=== PATIENT | female | born 1975 | race Caucasian/White ===

== ENCOUNTER 2022-08-27 07:53 | Emergency (ER) | payer OTHER, SELFPAY ==
[2022-08-27 07:58] VITALS: BP 139/95; PULSE 80; RESP 24; O2SAT 98; O2SAT 99; BMI 38.6
[2022-08-27 07:59] VITALS: BP 139/95; PULSE 77; PULSE 88; RESP 17; O2SAT 92; O2SAT 97
--- NOTE | 2022-08-27 08:13 | ECG_ITS ---
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
--- NOTE | 2022-08-27 08:13 | XR_ITS ---
[address] [address] Patient Name: ADRIEN ALVES MRN: [id number] date: 1975 Sex: F Assigned Patient Location: ER Current Patient Location: ED.MAIN Accession/Order Number: [id number] Exam Date: 08/27/2022 08:27 Report Date: 08/27/2022 08:39 At the request of: SHANEL RUIZ Procedure: XR chest 1V EXAMINATION: XR chest 1V HISTORY: chest pain 24 hours COMPARISON: No relevant comparison available. TECHNIQUE: AP portable FINDINGS: LUNGS: No significant pulmonary parenchymal abnormalities. VASCULATURE: No increased pulmonary vasculature. PLEURA: No pneumothorax, effusion, or pleural thickening. CARDIAC: No cardiomegaly or cardiac silhouette abnormality. MEDIASTINUM: No visible mass or adenopathy. BONES: No fracture or visible bone lesion. OTHER: Negative. IMPRESSION: No acute cardiopulmonary process Electronically authenticated by: CATHERINE GAYLE Date: 08/27/2022 08:39
--- NOTE | 2022-08-27 08:15 | ED_ITS ---
Documented by User: Yumiko Gutierrez 08/27/22 08:15 HPI - Chest Pain General Chief Complaint: Chest Pain Stated Complaint: CHEST PAIN Time Seen by Provider: 08/27/22 07:56 Source: patient Mode of arrival: walk-in Related Data Home Medications Medication Instructions Recorded Confirmed venlafaxine 37.5 mg 37.5 mg PO QDAY 08/27/22 08/27/22 capsule,extended release 24 hr Allergies Allergy/AdvReac Type Severity Reaction Status Date / Time [place] [facility] [place] Allergy Verified 08/27/22 07:58 PFSH PFSH Social History Smoking status: Former smoker Exam Constitutional Vital Signs - 24 hr 08/27/22 07:58 08/27/22 08:16 08/27/22 07:58 Pulse Rate Pulse Rate [Monitor] 80 Respiratory Rate 24 Blood Pressure Blood Pressure [Right Arm] 139/95 H Pulse Oximetry 99 98 Oxygen Delivery Method Room Air Room Air 08/27/22 07:59 08/27/22 07:59 08/27/22 08:29 Pulse Rate 77 88 92 H Pulse Rate [Monitor] Respiratory Rate 17 17 16 Blood Pressure 139/95 H 139/95 H 113/92 H Blood Pressure [Right Arm] Pulse Oximetry 97 92 L 95 Oxygen Delivery Method 08/27/22 08:30 08/27/22 08:30 08/27/22 09:01 Pulse Rate 80 74 73 Pulse Rate [Monitor] Respiratory Rate 17 13 16 Blood Pressure 128/78 H 128/78 H 119/96 H Blood Pressure [Right Arm] Pulse Oximetry 95 97 98 Oxygen Delivery Method Course Vital Signs Vital signs: Vital Signs Pulse Rate 80 08/27/22 07:58 Respiratory Rate 24 08/27/22 07:58 Blood Pressure 139/95 H 08/27/22 07:58 Pulse Oximetry 99 08/27/22 07:58 Oxygen Delivery Method Room Air 08/27/22 07:58 Pulse Rate 73 08/27/22 09:01 Respiratory Rate 16 08/27/22 09:01 Blood Pressure 119/96 H 08/27/22 09:01 Pulse Oximetry 98 08/27/22 09:01 Oxygen Delivery Method Room Air 08/27/22 08:16 MDM - Chest Pain Lab Data Labs: Lab Results 08/27/22 Range/Units 08:05 WBC 5.5 (4.0-11.0) 10^3/uL RBC 4.23 (4.20-5.40) 10^6/uL Hgb 12.3 (12.0-16.0) g/dL Hct 37.0 (36.0-48.0) % MCV 87.5 (81.0-99.0) fL MCH 29.1 (26.7-34.0) pg MCHC 33.2 (29.9-35.2) g/dL RDW 12.0 (11.0-15.0) % Plt Count 281 (150-450) 10^3/uL MPV 8.8 L (9.5-13.5) fL Neut % (Auto) 46.9 (43.0-75.0) % Lymph % (Auto) 43.6 (20.5-60.0) % [place] % (Auto) 7.3 (1.7-12.0) % Eos % (Auto) 1.3 (0.9-7.0) % Baso % (Auto) 0.5 (0.2-2.0) % Neut # (Auto) 2.6 (1.4-6.5) 10^3/uL Lymph # (Auto) 2.4 (1.2-3.8) 10^3/uL [place] # (Auto) 0.4 (0.3-0.8) 10^3/uL Eos # (Auto) 0.1 (0.0-0.7) 10^3/uL Baso # (Auto) 0.0 (0.0-0.1) 10^3/uL Abs Immat Gran (auto) 0.02 (0.00-0.03) 10^3/uL Imm/Tot Granulo (auto) 0.4 (0.0-0.5) % D-Dimer <0.19 (<=0.59) mg/L FEU Sodium 139 (136-145) mmol/L Potassium 3.9 (3.5-5.1) mmol/L Chloride 102 (98-107) mmol/L Carbon Dioxide 26.8 (21.0-32.0) mmol/L Anion Gap 14.1 BUN 16.0 (7.0-18.0) mg/dL Creatinine 0.94 (0.55-1.02) mg/dL Est GFR ( Amer) >60 (>=60) Est GFR (Non-Af Amer) >60 (>=60) BUN/Creatinine Ratio 17.0 Glucose 94 (74-106) mg/dL Calcium 8.9 (8.5-10.1) mg/dL Troponin I High Sens 16.1 (4.0-51.3) pg/mL Discharge Plan Discharge Chief Complaint: Chest Pain Clinical Impression: Atypical chest pain Patient Disposition: Home, Self-Care Time of Disposition Decision: 09:31 Condition: Good Mode of Transportation: Private Vehicle Prescriptions / Home Meds: No Action venlafaxine 37.5 mg capsule,extended release 24hr 37.5 mg PO QDAY Instructions: Chest Pain (ED) Stand Alone Forms: Portal Instructions Referrals: Akanksha Jack MD [Primary Care Provider] - 1 week Documented by User: Roney Perez MD 08/27/22 09:34 HPI - Chest Pain General Chief Complaint: Chest Pain Stated Complaint: CHEST PAIN Time Seen by Provider: 08/27/22 07:56 History of Present Illness HPI narrative: 46-year-old female presents for chest pain. It's been in the left upper heart of her chest for twenty-four hours continuously. No injury. No fever or cough. Sitting up makes it worse. She is not complaining of palpitations or shortness of breath or back pain. It goes down to the area below her left breast but doesn't radiate into her neck or arm. Related Data Home Medications Medication Instructions Recorded Confirmed venlafaxine 37.5 mg 37.5 mg PO QDAY 08/27/22 08/27/22 capsule,extended release 24 hr Allergies Allergy/AdvReac Type Severity Reaction Status Date / Time cefaclor [From [facility]] Allergy Verified 08/27/22 07:58 Review of Systems 2 ROS Narrative A ten point review of systems is negative except as noted above. PFSH PFSH Social History Smoking status: Former smoker Exam Narrative Exam Narrative: Nurses note and vital signs reviewed and patient is not hypoxic. General: The patient appears well and in no apparent distress. Patient is resting comfortably on cart. Skin: Warm, dry, no pallor noted. There is no rash noted. Head: Normocephalic, atraumatic Eye: Normal conjunctiva, no drainage Ears, Nose, Mouth, and Throat: oral mucosa is moist. Nares patent. Cardiovascular: Regular Rate and Rhythm. Chest wall not tender. Respiratory: Patient is in no distress, no accessory muscle use, lungs are clear to auscultation, no wheezing, rales or rhonchi Back: non-tender GI: Normal bowel sounds, no tenderness to palpation, no masses appreciated. No rebound, guarding, or rigidity noted. Musculoskeletal: The patient has no evidence of calf tenderness, no pitting edema, symmetrical pulses noted bilaterally Neurological: A&O, normal speech Psychiatric: Cooperative Constitutional Vital Signs - 24 hr 08/27/22 07:58 08/27/22 08:16 08/27/22 07:58 Pulse Rate Pulse Rate [Monitor] 80 Respiratory Rate 24 Blood Pressure Blood Pressure [Right Arm] 139/95 H Pulse Oximetry 99 98 Oxygen Delivery Method Room Air Room Air 08/27/22 07:59 08/27/22 07:59 08/27/22 08:29 Pulse Rate 77 88 92 H Pulse Rate [Monitor] Respiratory Rate 17 17 16 Blood Pressure 139/95 H 139/95 H 113/92 H Blood Pressure [Right Arm] Pulse Oximetry 97 92 L 95 Oxygen Delivery Method 08/27/22 08:30 08/27/22 08:30 08/27/22 09:01 Pulse Rate 80 74 73 Pulse Rate [Monitor] Respiratory Rate 17 13 16 Blood Pressure 128/78 H 128/78 H 119/96 H Blood Pressure [Right Arm] Pulse Oximetry 95 97 98 Oxygen Delivery Method Course Vital Signs Vital signs: Vital Signs Pulse Rate 80 08/27/22 07:58 Respiratory Rate 24 08/27/22 07:58 Blood Pressure 139/95 H 08/27/22 07:58 Pulse Oximetry 99 08/27/22 07:58 Oxygen Delivery Method Room Air 08/27/22 07:58 Pulse Rate 73 08/27/22 09:01 Respiratory Rate 16 08/27/22 09:01 Blood Pressure 119/96 H 08/27/22 09:01 Pulse Oximetry 98 08/27/22 09:01 Oxygen Delivery Method Room Air 08/27/22 08:16 MDM - Chest Pain MDM Narrative Medical decision making narrative: Her workup here is negative. No evidence of heart disease or pneumothorax or pulmonary embolism. She'll follow-up with her doctor if symptoms persist. Treatment diagnosis and follow-up were discussed with the patient. Differential Diagnosis Differential diagnosis: Likely pneumothorax, stable angina, unstable angina pectoris, atypical chest pain, st elevation myocardial infarction, costochondritis and chest pain Lab Data Attestation: I reviewed the patient's lab results. Labs: Lab Results 08/27/22 Range/Units 08:05 WBC 5.5 (4.0-11.0) 10^3/uL RBC 4.23 (4.20-5.40) 10^6/uL Hgb 12.3 (12.0-16.0) g/dL Hct 37.0 (36.0-48.0) % MCV 87.5 (81.0-99.0) fL MCH 29.1 (26.7-34.0) pg MCHC 33.2 (29.9-35.2) g/dL RDW 12.0 (11.0-15.0) % Plt Count 281 (150-450) 10^3/uL MPV 8.8 L (9.5-13.5) fL Neut % (Auto) 46.9 (43.0-75.0) % Lymph % (Auto) 43.6 (20.5-60.0) % [place] % (Auto) 7.3 (1.7-12.0) % Eos % (Auto) 1.3 (0.9-7.0) % Baso % (Auto) 0.5 (0.2-2.0) % Neut # (Auto) 2.6 (1.4-6.5) 10^3/uL Lymph # (Auto) 2.4 (1.2-3.8) 10^3/uL [place] # (Auto) 0.4 (0.3-0.8) 10^3/uL Eos # (Auto) 0.1 (0.0-0.7) 10^3/uL Baso # (Auto) 0.0 (0.0-0.1) 10^3/uL Abs Immat Gran (auto) 0.02 (0.00-0.03) 10^3/uL Imm/Tot Granulo (auto) 0.4 (0.0-0.5) % D-Dimer <0.19 (<=0.59) mg/L FEU Sodium 139 (136-145) mmol/L Potassium 3.9 (3.5-5.1) mmol/L Chloride 102 (98-107) mmol/L Carbon Dioxide 26.8 (21.0-32.0) mmol/L Anion Gap 14.1 BUN 16.0 (7.0-18.0) mg/dL Creatinine 0.94 (0.55-1.02) mg/dL Est GFR ( Amer) >60 (>=60) Est GFR (Non-Af Amer) >60 (>=60) BUN/Creatinine Ratio 17.0 Glucose 94 (74-106) mg/dL Calcium 8.9 (8.5-10.1) mg/dL Troponin I High Sens 16.1 (4.0-51.3) pg/mL ECG Data Attestation: I personally reviewed and interpreted this ECG as follows: (EKG on my interpretation shows normal sinus rhythm with a rate of 83. No acute ST segment changes.) Heart Score History: Slightly/Non-Suspicious ECG: Normal Age: >45-<65 years Risk Factors: 1 or 2 Risk Factors Troponin: <Normal Limit Total Heart Score Recommendations & Risks:: 2 Discharge Plan Discharge Chief Complaint: Chest Pain Clinical Impression: Atypical chest pain Patient Disposition: Home, Self-Care Time of Disposition Decision: 09:31 Condition: Good Mode of Transportation: Private Vehicle Prescriptions / Home Meds: No Action venlafaxine 37.5 mg capsule,extended release 24hr 37.5 mg PO QDAY Instructions: Chest Pain (ED) Stand Alone Forms: Portal Instructions Referrals: Akanksha Jack MD [Primary Care Provider] - 1 week
--- NOTE | 2022-08-27 08:21 | PC.NURSE ---
Patient arrives c/o left sided chest pain that radiates to area under left breast. patient states that it began yesterday while she way laying in bed, cuddling a dog. Patient reports no medications taken other than her mental health medications and denies cardiac history but states, something like this happened years ago but they never found out why. Patient denies following up with physician after that episode. patient skin is pink, warm, dry. Patient is in no active distress and is lying in bed. patient oriented to room and given call light.
[2022-08-27 08:29] VITALS: BP 113/92; PULSE 92; RESP 16; O2SAT 95
[2022-08-27 08:30] VITALS: BP 128/78; PULSE 74; PULSE 80; RESP 13; RESP 17; O2SAT 95; O2SAT 97
[2022-08-27] MEDS: ASPIRIN 81 MG TAB.CHEW 324 MG PO (08:33)
[2022-08-27 08:42] LABS: Basophils Percent Auto 0.5 % (0.2-2.0); Eosinophils Absolute Auto 0.1 10^3/uL (0.0-0.7); Eosinophils Percent Auto 1.3 % (0.9-7.0); Hemoglobin 12.3 g/dL (12.0-16.0); Immature Granulocytes Abs Auto 0.02 10^3/uL (0.00-0.03); Immature Granulocytes Pct Auto 0.4 % (0.0-0.5); Lymphocytes Absolute Auto 2.4 10^3/uL (1.2-3.8); Lymphocytes Percent Auto 43.6 % (20.5-60.0); Mean Corpuscular HGB Conc 33.2 g/dL (29.9-35.2); Mean Corpuscular Hemoglobin 29.1 pg (26.7-34.0); Mean Corpuscular Volume 87.5 fL (81.0-99.0); Mean Platelet Volume 8.8 fL (9.5-13.5); Monocytes Absolute Auto 0.4 10^3/uL (0.3-0.8); Monocytes Percent Auto 7.3 % (1.7-12.0); Neutrophils Absolute Auto 2.6 10^3/uL (1.4-6.5); Neutrophils Percent Auto 46.9 % (43.0-75.0); Platelet Count 281 10^3/uL (150-450); Red Blood Count 4.23 10^6/uL (4.20-5.40); White Blood Count 5.5 10^3/uL (4.0-11.0)
[2022-08-27 08:59] LABS: Anion Gap 14.1; Calcium 8.9 mg/dL (8.5-10.1); Carbon Dioxide 26.8 mmol/L (21.0-32.0); Chloride 102 mmol/L (98-107); Estimated GFR (African America >60 (>=60); Estimated GFR (Non-African Ame >60 (>=60); Glucose 94 mg/dL (74-106); Potassium 3.9 mmol/L (3.5-5.1); Sodium 139 mmol/L (136-145); Troponin I High Sensitivity 16.1 pg/mL (4.0-51.3)
[2022-08-27 09:01] VITALS: BP 119/96; PULSE 73; PULSE 80; RESP 16; RESP 22; O2SAT 96; O2SAT 98
[2022-08-27 09:05] LABS: D Dimer <0.19 mg/L FEU (<=0.59)
[2022-08-27 09:31] VITALS: BP 121/86
== END 2022-08-27 10:22 | disposition home or self-care (01) ==
PROVIDERS: Emergency Provider Emergency Medicine; PCP Family Medicine
DX: R07.89 Other chest pain (principal); Z87.891 Personal history of nicotine dependence
CPT/HCPCS: 36415; 71045; 80048; 84484; 85025; 85378; 93005; 99285

== ENCOUNTER 2022-12-23 20:34 | Emergency (ER) | payer OTHER, SELFPAY ==
[2022-12-23 20:39] VITALS: BP 143/93; PULSE 114; RESP 20; TEMP 36.7; O2SAT 98; BMI 38.1
--- NOTE | 2022-12-23 20:50 | ED.SKABFB1 ---
HPI - Skin/Abscess/Foreign Bdy General Chief complaint: Animal Bite Stated complaint: BEE STING UPPER L ARM Time Seen by Provider: 12/23/22 20:36 Source: patient Mode of arrival: walk-in Limitations: no limitations History of Present Illness HPI narrative: patient is a 47-year-old female presents to the emergency department for a bee sting to the left medial arm that occurred yesterday. She states today the area has been more swollen and red and is bothering her. She did not take any medications before she came in. She has no history of bee sting ALLERGY. She has not had any swelling, rash anywhere else on the body. No drainage from the area. She is not concerned for . Related Data Home Medications Medication Instructions Recorded Confirmed venlafaxine 37.5 mg 37.5 mg PO QDAY 08/27/22 12/23/22 capsule,extended release 24 hr albuterol sulfate 2.5 mg/3 mL 2.5 mg inhalation Q4H PRN 12/23/22 12/23/22 (0.083 %) solution for nebulization shortness of breath or wheezing albuterol sulfate 90 mcg/actuation 2 puff inhalation Q4H PRN 12/23/22 12/23/22 aerosol inhaler shortness of breath or wheezing Previous Rx's Medication Instructions Recorded hydroxyzine HCl 25 mg tablet 25 mg PO Q6H PRN itching #20 tabs 12/23/22 prednisone 20 mg tablet See Rx Instructions .Route 12/23/22 .COMPLEX #12 tabs Allergies Allergy/AdvReac Type Severity Reaction Status Date / Time cefaclor [From [facility]] Allergy Verified 12/23/22 20:43 Review of Systems ROS Constitutional Denies: fever or chills Ears, nose, mouth, and throat Denies: throat pain Respiratory Denies: shortness of breath or cough Gastrointestinal Denies: nausea or vomiting Musculoskeletal Denies: back pain Integumentary/Breast Denies: rash Hematologic/Lymphatic Denies: easy bruising PFSH PFSH Social History Smoking status: Former smoker Exam Narrative Exam Narrative: Gen.: Awake, alert, in no distress Head: Normocephalic, atraumatic ENT: Moist mucous membranes; no facial or lip swelling Respiratory: No respiratory distress, lungs clear bilaterally Cardio: Regular rate and rhythm Extremities: Moves extremities equally Psych: Normal mood and affect Neuro: No focal neuro deficit Skin: Warm, dry, intact; erythema of the left medial arm, no evidence of retained stinger. no circumferential swelling or redness of the left arm. No other rashes or hives noted. Constitutional Vital Signs, click to edit/add: Last Vital Signs Temp 98.1 F 12/23/22 20:39 Pulse 114 H 12/23/22 20:39 Resp 20 12/23/22 20:39 BP 143/93 H 12/23/22 20:39 Pulse Ox 98 12/23/22 20:39 Course Vital Signs Vital signs: Vital Signs Temperature 98.1 F 12/23/22 20:39 Pulse Rate 114 H 12/23/22 20:39 Respiratory Rate 20 12/23/22 20:39 Blood Pressure 143/93 H 12/23/22 20:39 Pulse Oximetry 98 12/23/22 20:39 Temperature 98.1 F 12/23/22 20:39 Pulse Rate 114 H 12/23/22 20:39 Respiratory Rate 20 12/23/22 20:39 Blood Pressure 143/93 H 12/23/22 20:39 Pulse Oximetry 98 12/23/22 20:39 MDM - Skin/Abscess/Foreign Bdy MDM Narrative Medical decision making narrative: patient treated for localized ALLERGIC reaction to the left arm from bee sting. She is given antihistamines and steroid taper. No evidence of diffuse ALLERGIC reaction or anaphylaxis in the Emergency Room. Follow-up with PCP and return to the Emergency Room if symptoms change or worsen Medical Records Attestation: I reviewed the patient's medical records. Discharge Plan Discharge Chief Complaint: Animal Bite Clinical Impression: Bee sting Patient Disposition: Home, Self-Care Time of Disposition Decision: 20:43 Condition: Good Prescriptions / Home Meds: New prednisone 20 mg tablet See Rx Instructions .ROUTE .COMPLEX Qty: 12 0RF Rx Instructions: 3 tabs daily for 2 days, then 2 tabs daily for 2 days, then 1 tab daily for 2 days hydroxyzine HCl 25 mg tablet 25 mg PO Q6H PRN (Reason: itching) Qty: 20 0RF No Action albuterol sulfate 2.5 mg /3 mL (0.083 %) solution for nebulization 2.5 mg inhalation Q4H PRN (Reason: shortness of breath or wheezing) albuterol sulfate 90 mcg/actuation HFA aerosol inhaler 2 puff INHALATION Q4H PRN (Reason: shortness of breath or wheezing) venlafaxine 37.5 mg capsule,extended release 24hr 37.5 mg PO QDAY Instructions: Insect Bite or Sting (ED) Stand Alone Forms: Portal Instructions Referrals: Akanksha Jack MD [Primary Care Provider] - 1 week Discharge Date/Time: 12/23/22 21:09
[2022-12-23] MEDS: PREDNISONE 20 MG TABLET 60 MG PO (20:54)
[2022-12-23] MEDS: HYDROXYZINE HCL 25 MG TABLET PO (20:54)
== END 2022-12-23 21:09 | disposition home or self-care (01) ==
PROVIDERS: Emergency Provider Emergency Medicine; PCP Family Medicine
DX: T63.441A Toxic effect of venom of bees, accidental (unintentional), initial encounter (principal); Z79.899 Other long term (current) drug therapy; Z87.891 Personal history of nicotine dependence
CPT/HCPCS: 99283

== ENCOUNTER 2024-02-15 20:18 | Emergency (ER) | payer OTHER, SELFPAY ==
[2024-02-15] VITALS (14 sets, daily range): BP systolic 125–147; BP diastolic 73–94; PULSE 78–113; TEMP 36.6; O2SAT 92–100; BMI 41.6
--- OUTSIDE RECORDS SUMMARY | 2024-02-15 20:22 | XMS_ITS | CCD ---
Author Organization [facility] Care Team Providers Care Customer Service Attendant Name Role Phone Rafita Donnelly Unavailable Unavailable NONE, XXXX Unavailable Unavailable VernRafita toure Unavailable Unavailable NONE, XXXX Unavailable Unavailable PHYSICIAN, DEFAULT Unavailable Unavailable PHYSICIAN, DEFAULT Unavailable Unavailable ML, DR AKANKSHA Lackey Admitting Unavailable JACK, DR AKANKSHA Lackey Attending Unavailable JACK, DR AKANKSHA Lackey Primary Care Unavailable JACK, DR AKANKSHA Lackey Primary Care Unavailable JOCELYNE, MARQUIS Admitting Unavailable MARQUIS CASANOVA Attending Unavailable MARQUIS CASANOVA Consulting Unavailable CARLOS ALBERTO CALLE Consulting Unavailable JACK, DR AKANKSHA Lackey Admitting Unavailable JACK, DR AKANKSHA Lackey Attending Unavailable JACK, DR AKANKSHA Lackey Primary Care Unavailable JACK, DR AKANKSHA Lackey Consulting Unavailable JACK, DR AKANKSHA Lackey Primary Care Unavailable PAY, DR REY Admitting Unavailable PAY, DR REY Attending Unavailable PAY, DR REY Consulting Unavailable WILFRID DOOLEY Consulting Unavailable WOMACK, SAUL Consulting Unavailable Ml, Akanksha Unavailable Allergies Allergy Classification Reported Allergen(s) Allergy Type Date of Onset Reaction(s) Facility (3 sources) Cefaclor Drug Allergy 01-27-20 13 Unknown [facility] (9 sources) Morphine Drug Allergy 06-14-19 Unknown, [facility] (4 sources) Morphine Sulfate (Concentrate) *ANALGESICS - OPIOI Propensity to adverse reactions Unknown Continuent Other (4 sources) Ceclor *CEPHALOSPORINS* Propensity to adverse reactions 02-21-20 18 Unknown Continuent Other (3 sources) Cephalosporins (Antibiotic) Allergy to substance 06-29-19 [facility] Medications Current Medications Medication Drug Class(es) Dates Sig (Normalized) Sig (Original) amoxicillin 875 mg / clavulanate 125 mg oral tablet (1 source) Penicillin-class Antibacterial Start: 10-19-2022 take 1 tablet by mouth every twelve hours Amoxicillin-Pot Clavulanate 875-125 MG 1 tablet Orally every 12 hrs for 10 day(s) Oct, Active ibuprofen 100 mg oral tablet (3 sources) Nonsteroidal Anti-inflammatory Drug Motrin 100 mg 2 tablets as needed Orally as needed Active venlafaxine (13 sources) Serotonin and Norepinephrine Reuptake Inhibitor Start: 12-12-2023 take 1 capsule by mouth once daily Venlafaxine Active 0 .ROUTE .COMPLEX December 12, 2023 9:01am TAKE 1 CAPSULE BY MOUTH EVERY DAY Start: 11-18-2023 End: 12-12-2023 take 1 capsule by mouth once daily Venlafaxine Discontinued 0 .ROUTE .COMPLEX November 18, 2023 8:19am December 12, 2023 9:01am TAKE 1 CAPSULE BY MOUTH EVERY DAY Start: 10-17-2023 End: 11-18-2023 take 1 capsule by mouth once daily Venlafaxine Discontinued 0 .ROUTE .COMPLEX October 17, 2023 11:46am November 18, 2023 8:19am TAKE 1 CAPSULE BY MOUTH EVERY DAY Start: 10-17-[address] [facility] once daily Venlafaxine Active 0 .ROUTE .COMPLEX October 17, 2023 11:46am TAKE 1 CAPSULE BY MOUTH EVERY DAY Start: 04-27-2023 End: 10-17-2023 take 1 capsule by mouth once daily Venlafaxine Discontinued 1 CAP PO Daily April 27, 2023 1:00am October 17, 2023 11:46am FreeTextSig: TAKE ONE CAPSULE BY MOUTH DAILY; Note: Source Status: Refill; Refills: 5; Qty: 30 Each; Provider: Ml Lackey take [address] [facility] once daily Venlafaxine HCl ER 37.5 mg TAKE ONE CAPSULE BY MOUTH DAILY for 30 Active Completed/Discontinued Medications Medication Drug Class(es) Dates Sig (Normalized) Sig (Original) [id number] 200 actuat albuterol 0.09 mg/actuat metered dose inhaler (3 sources) beta2-Adrenergic Agonist Start: 06-29-2023 End: 01-02-2024 Albuterol Sulfate Discontinued 1 INH INHALATION Every 6 hours June 29, 2023 12:00am January 02, 2024 11:13am azithromycin 250 mg oral tablet (6 sources) Macrolide Antimicrobial Start: 04-27-2023 End: 06-29-2023 take 2 tablets by mouth once daily, then take 1 tablet by mouth once daily Azithromycin Discontinued TAB PO Daily April 27, 2023 1:00am June 29, 2023 11:42am FreeTextSig: as directed Orally 2 tabs po today, then 1 tab daily x 4 more days; Note: Source Status: Taking; Refills: 0; Provider: Ml Lackey Start: 12-17-2022 Azithromycin 2 50 MG as directed Orally 2 tabs po today, then 1 tab daily x 4 more days for 5 Dec, Active hydrocortisone 10 mg/ml / neomycin 3.5 mg/ml / polymyxin b [id number] unt/ml otic suspension (2 sources) Aminoglycoside Antibacterial, Polymyxin-class Antibacterial, Corticosteroid Start: 10-24-2023 End: 01-02-2024 Rcrbevcb-Smvcwzjqx-Es Discontinued 4 DROPS OTIC Three times daily October 24, 2023 12:00am January 02, 2024 11:13am Methylprednisolone (6 sources) Corticosteroid Start: 04-27-2023 End: 06-29-2023 Methylprednisolone Discontinued MG PO As Directed April 27, 2023 1:00am June 29, 2023 11:42am FreeTextSig: as directed Orally; Note: Source Status: Taking; Refills: 0; Qty: 1 Packet; Provider: Ml Lackey Start: 12-17-2022 methylPREDNISo lone 4 MG as directed Orally for 6 days Dec, Active permethrin 50 mg/ml topical cream (3 sources) Pyrethroid Start: 06-29-2023 End: 01-02-2024 Permethrin Discontinued 1 APPLIC TOPICAL Q14D 60 June 29, 2023 12:00am January 02, 2024 11:13am apply second treatment 14 days after first treatment if live lice remain tiZANidine 4 mg oral tablet (5 sources) Central alpha-2 Adrenergic Agonist Start: 04-27-2023 End: 06-29-2023 take 1 tablet by mouth once daily at bedtime as needed Tizanidine Discontinued MG PO April 27, 2023 1:00am June 29, 2023 11:42am FreeTextSi tablet as needed Orally qhs prn; Note: Source Status: Start; Provider: Ml Lackey take 1 tablet by nasir th once daily at bedtime as needed tiZANidine HCl 4 MG 1 tablet as needed Orally qhs prn for 10 days Active Problems Active Problems Problem Classification Problem Date Documented Date Episodic/Chronic Abdominal pain (10 sources) Right upper quadrant pain; Translations: [Right upper quadrant pain] Episodic Acute bronchitis (8 sources) Acute bronchitis; Translations: [Acute bronchitis due to other specified organisms] Episodic Anxiety disorders (12 sources) Generalized anxiety disorder; Translations: [Generalized anxiety disorder] 10-25-2023 Chronic Asthma (8 sources) Uncomplicated asthma; Translations: [Unspecified asthma, uncomplicated] Chronic Chronic obstructive pulmonary disease and bronchiectasis (1 source) Bronchitis, not specified as acute or chronic Episodic Deficiency and other anemia (10 sources) Anemia; Translations: [Anemia, unspecified] Episodic Genitourinary symptoms and ill-defined conditions (12 sources) Abnormal findings on microbiological examination of urine; Translations: [Unspecified abnormal findings in urine] Episodic Headache; including migraine (11 sources) Migraine without aura, not refractory ; Translations: [Migraine, unspecified, not intractable, without status migrainosus] Onset: 10-10-2017 Chronic Malaise and fatigue (17 sources) Fatigue; Translations: [Other fatigue] Episodic Mood disorders (10 sources) Depression; Translations: [Depression] Chronic Nausea and vomiting (8 sources) Nausea and vomiting; Translations: [Nausea with vomiting, unspecified] Onset: 09-05-2017 Episodic Nonspecific chest pain (1 source) Chest pain, unspecified Episodic Other circulatory disease (4 sources) Elevated blood-pressure reading without diagnosis of hypertension; Translations: [Elevated blood-pressure reading, without diagnosis of hypertension] Episodic Other connective tissue disease (1 source) Other muscle spasm Episodic Other ear and sense organ disorders (1 source) Otitis externa; Translations: [Unspecified otitis externa, unspecified ear] 10-25-2023 Chronic Other ear and sense organ disorders (1 source) Unspecified otitis externa, unspecified ear; Translations: [Infective otitis externa, unspecified] 10-24-2023 Chronic Other infections; including parasitic (2 sources) Pediculosis capitis; Translations: [Pediculosis due to Pediculus humanus capitis] 04-24-2024 Episodic Other nutritional; endocrine; and metabolic disorders (12 sources) Obese class II; Translations: [Body mass index (BMI) 38.0-38.9, adult] Chronic Other screening for suspected conditions (not mental disorders or infectious disease) (4 sources) Abnormal findings on diagnostic imaging of breast; Translations: [Other abnormal and inconclusive findings on diagnostic imaging of breast] Episodic Other upper respiratory disease (4 sources) Disorder of pharynx; Translations: [Other diseases of pharynx] Episodic Other upper respiratory infections (5 sources) Chronic sinusitis, unspecified; Translations: [Chronic sinusitis] Onset: 04-24-2021 Chronic Other upper respiratory infections (10 sources) Acute upper respiratory infection, unspecified; Translations: [Acute pharyngitis] Onset: 02-16-2022 Episodic Residual codes; unclassified (4 sources) Obstructive sleep apnea syndrome; Translations: [Obstructive sleep apnea (adult) (pediatric)] Chronic Residual codes; unclassified (6 sources) Family history of diabetes mellitus; Translations: [Family history of diabetes mellitus] Episodic Spondylosis; intervertebral disc disorders; other back problems (4 sources) Low back pain; Translations: [Low back pain, unspecified] Episodic Sprains and strains (4 sources) Sprain of calcaneofibular ligament; Translations: [Sprain of calcaneofibular ligament of unspecified ankle, initial encounter] Episodic Unclassified (3 sources) COUGH, UNSPECIFIED; Translations: [COUGH, UNSPECIFIED] Onset: 02-16-2022 Unclassified (4 sources) CONTACT W/AND (SUSP) EXPOS COVID-19; Translations: [CONTACT W/AND (SUSP) EXPOS COVID-19] Onset: 04-24-2021 Unclassified (3 sources) LOW BACK PAIN, UNSPECIFIED; Translations: [LOW BACK PAIN, UNSPECIFIED] Onset: 08-04-2021 Past or Other Problems Problem Classification Problem Date Documented Da te Episodic/Chronic Disorders of teeth and jaw (4 sources) Dental caries; Translations: [Dental caries, unspecified] Onset: 06-27-2018 Episodic Heart valve disorders (4 sources) O/E - cardiac murmur; Translations: [Cardiac murmur, unspecified] Onset: 06-13-2017 Episodic Other connective tissue disease (4 sources) Pain in left lower limb; Translations: [Pain in left leg] Onset: 04-28-2018 Episodic Residual codes; unclassified (1 source) Acquired absence of both cervix and uterus; Translations: [ACQUIRED ABSENCE BOTH CERVIX AND UTERUS] Onset: 07-21-2021 Episodic Unclassified (1 source) COUGH, UNSPECIFIED; Translations: [COUGH, UNSPECIFIED] Onset: 02-12-2022 Unclassified (1 source) LOW BACK PAIN, UNSPECIFIED; Translations: [LOW BACK PAIN, UNSPECIFIED] Onset: 07-31-2021 Unclassified (1 source) CONTACT W/AND (SUSP) EXPOS COVID-19; Translations: [CONTACT W/AND (SUSP) EXPOS COVID-19] Onset: 04-22-2021 Results Test Name Value Interpretation Reference Range Facility Covid-19 PCR (CVDTB)on SARS-CoV-2 (COVID-19) RNA ALBERTO+probe Ql (Unsp spec) Not detected Normal NOT DETECTED [facility] Comment on above: Result Comment: When diagnostic testing is negative, the possibility of a false negative should be considered in the context of a patient's recent exposures and the presence of clinical signs and symptoms consistent with SARS-CoV-2. This test is not yet approved or cleared by the [place] FDA. When there are no FDA-approved or cleared tests available, and other criteria are met, FDA can make tests available under an emergency access mechanism called an Emergency Use Authorization (EUA). The EUA for this test is supported by the [employer] of Health and Human Service's declaration that circumstances exist to justify the emergency use of in vitro diagnostics for the detection and/or diagnosis of the virus that causes COVID-19. This EUA will remain in effect for the duration of the COVID-19 declaration justifying emergency of IVDs, unless it is terminated or revoked by the FDA (after which the test may no longer be used). Performed By: #### C VDTBH ####[facility] [address] [place], [place] [address]MnBaudilio Jean GROUP A STREP CULTUREon S. pyogenes Ag Ql (Unsp spec) Culture Observations: NEGATIVE FOR GROUP A STREPTOCOCCUS. Normal [facility] Comment on above: Performed By: #### G RASTCX, SSCRN #### [facility] [address] [place] [address] Dr. Harini Jean INFLUENZA A AND B AGon 02-12 INFLUANEGH SEE BELOW Normal [facility] Comment on above: Result Comment: Nega tive for Flu A protein angiten. Infection due to Flu A cannot be ruled out. Flu A angiten in the sample may be below the detection limit of the test. Performed By: #### I NFLUAB #### [facility] [address] [place] [address] Dr. Harini Jean INFLUBNEG SEE BELOW Normal [facility] Comment on above: Result Comment: Nega tive for Flu B protein antigen. Infection due to Flu B cannot be ruled out. Flu B antigen in the sample may be below the detection limit of the test. Performed By: #### I NFLUAB #### [facility] [address] [place] [address] Dr. Harini Jean INFLUENZA A AG Negative Normal NEGATIVE SEE COMMENT [facility] Comment on above: Performed By: #### I NFLUAB #### [facility] [address] [place] [address] Dr. Harini Jean INFLUENZA B AG Negative Normal NEGATIVE SEE COMMENT [facility] Comment on above: Performed By: #### I NFLUAB #### [facility] [address] [place] [address] Dr. Harini Jean INTERNAL CONTROLS Within Normal Limits Normal Wi thin Normal Limits [facility] Comment on above: Performed By: #### I NFLUAB #### [facility] [address] [place] [address] Dr. Harini Jean STREPT SCREENon 02-12-2022 STREP SCREEN A Negative Normal NEGATIVE [facility] Comment on above: Performed By: #### G RASTCX, SSCRN #### [facility] [address] [place] [address] Dr. Harini Jean XR CHEST 2 Von 02-12-2022 XR CHEST 2 V XR CHEST 2 V 02/13/20 22 7:10 PM EST CLINICAL INDICATION: Chest pain and shortness of breath COMPARISON: 11/22/2018 TECHNIQUE: PA and lateral views of the chest. FINDINGS: There are no tubes or implants noted. The cardiomediastinal silhouette and pulmonary vasculature are within normal limits. No focal parenchymal opacities. No pneumothorax or pleural effusion. No displaced rib fractures. Osseous structures demonstrate degenerative changes. Soft tissues are grossly normal. IMPRESSION: No acute cardiopulmonary abnormality. Electronically authenticated by: SAUL WOMACK Date: 2022-02-12 20:23 Normal [facility] CBC AUTO DIFFon 07-18-2021 BASO # 0.0 103/ul Normal 0.0-0.1 [facility] Comment on above: Performed By: #### C BC #### [facility] [address] [address] [address] Harini Jean Basophils/100 WBC (Bld) 0.4 % Normal 0.2-2.0 [facility] Comment on above: Performed By: #### C BC #### [facility] [address] [place] [address] Dr. Harini Jean EO # 0.1 103/ul Normal 0.0-0.7 [facility] Comment on above: Performed By: #### C BC #### [facility] [address] [place] [address] Dr. Harini Jean Eosinophils/100 WBC (Bld) 1.2 % Normal 0.9-7.0 [facility] Comment on above: Performed By: #### C BC #### [facility] [address] [place] [address] Dr. Harini Jean Erythrocyte distribution width (RBC) [Ratio] 12.2 % Normal 11.0-15.0 [facility] Comment on above: Performed By: #### C BC #### [facility] [address] [place] [address] Dr. Harini Jean Hematocrit (Bld) [Volume fraction] 35.1 % Critically low 36.0-48.0 [facility] Comment on above: Performed By: #### C BC #### [facility] [address] [place] [address] Dr. Harini Jean Hemoglobin (Bld) [Mass/Vol] 11.4 g/dL Critically low 12.0-16.0 [facility] Comment on above: Performed By: #### C BC #### [facility] [address] [place] [address] Dr. Harini Jean IG # 0.02 10e3/ul Normal 0.00-0.03 [facility] Comment on above: Performed By: #### C BC #### [facility] [address] [place] [address] Dr. Harini Jean IG % 0.3 % Normal 0.0-0.5 [facility] Comment on above: Performed By: #### C BC #### [facility] [address] [place] [address] Dr. Harini Jean LYMPH # 2.8 103/ul Normal 1.2-3.8 [facility] Comment on above: Performed By: #### C BC #### [facility] [address] [place] [address] Dr. Harini Jean Lymphocytes/100 WBC (Bld) 37.5 % Normal 20.5-60.0 [facility] Comment on above: Performed By: #### C BC #### [facility] [address] [place] [address] Dr. Harini Jean MANUAL DIFF REQ NO Normal [facility] Comment on above: Performed By: #### C BC #### [facility] [address] [place] [address] Dr. Harini Jean MCH (RBC) [Entitic mass] 29.5 pg Normal 26.7-34.0 [facility] Comment on above: Performed By: #### C BC #### [facility] [address] [place] [address] Dr. Harini Jean MCHC (RBC) [Mass/Vol] 32.5 g/dL Normal 29.9-35.2 [facility] Comment on above: Performed By: #### C BC #### [facility] [address] [place] [address] Dr. Harini Jean MCV (RBC) [Entitic vol] 90.7 fL Normal 81.0-99.0 [facility] Comment on above: Performed By: #### C BC #### [facility] [address] [place] [address] Dr. Harini Jean MONO # 0.6 103/ul Normal 0.3-0.8 [facility] Comment on above: Performed By: #### C BC #### [facility] [address] [place] [address] Dr. Harini Jean Monocytes/100 WBC (Bld) 7.6 % Normal 1.7-12.0 [facility] Comment on above: Performed By: #### C BC #### [facility] [address] [place] [address] Dr. Harini Jean NEUT # 4.0 103/ul Normal 1.4-6.5 [facility] Comment on above: Performed By: #### C BC #### [facility] [address] [place] [address] Dr. Harini Jean Neutrophils/100 WBC (Bld) 53.0 % Normal 43.0-75.0 [facility] Comment on above: Performed By: #### C BC #### [facility] [address] [place] [address] Dr. Harini Jean Platelet mean volume (Bld) [Entitic vol] 8.4 fL Critically low 9.5-13.5 [facility] Comment on above: Performed By: #### C BC #### [facility] [address] [place] [address] Dr. Harini Jean PLT 260 103/ul Normal 150-450 [facility] Comment on above: Performed By: #### C BC #### [facility] [address] [place] [address] Dr. Harini Jean RBC 3.87 106/ul Critically low 4.20-5.40 [facility] Comment on above: Performed By: #### C BC #### [facility] [address] [place] [address] Dr. Harini Jean WBC 7.5 103/ul Normal 4.0-11.0 [facility] Comment on above: Performed By: #### C BC #### [facility] [address] [place] [address] Dr. Harini Jean CRPon 07-18-2021 CRP 0.8 mg/dL Normal <=1.0 [facility] Comment on above: Performed By: #### B MP, CRP #### [facility] [address] [place] [address] Dr. Harini Jean ER URINE PROFILEon 2 Bilirubin Ql (U) Negative Normal NEGATIVE [facility] Comment on above: Performed By: #### E RUR #### [facility] [address] [place] [address] Dr. Harini Jean Clarity (U) CLEAR Normal CLEAR [facility] Comment on above: Performed By: #### E RUR #### [facility] [address] [place] [address] Dr. Harini Jean Color (U) LT. YELLOW Normal YELLOW [facility] Comment on above: Performed By: #### E RUR #### [facility] [address] [place] [address] Dr. Harini WHALEN A micrscopic examination will be performed if indicated. Normal [facility] Comment on above: Performed By: #### E RUR #### [facility] [address] [place] [address] Dr. Harini Jean Glucose Ql (U) Negative Normal NEGATIVE [facility] Comment on above: Performed By: #### E RUR #### [facility] [address] [place] [address] Dr. Harini Jean Hemoglobin Ql (U) Negative Normal NEGATIVE [facility] Comment on above: Performed By: #### E RUR #### [facility] [address] [place] [address] Dr. Harini Jean Ketones Ql (U) Negative Normal NEGATIVE [facility] Comment on above: Performed By: #### E RUR #### [facility] [address] [place] [address] Dr. Harini Jean LEUKOCYTES Negative Normal NEGATIVE [facility] Comment on above: Performed By: #### E RUR #### [facility] [address] [place] [address] Dr. Harini Jean Nitrite Ql (U) Negative Normal NEGATIVE [facility] Comment on above: Performed By: #### E RUR #### [facility] [address] [place] [address] Dr. Harini Jean pH (U) 6.5 [pH] Normal 5-9 [facility] Comment on above: Performed By: #### E RUR #### [facility] [address] [place] [address] Dr. Harini Jean SPEC GRAVITY 1.015 Normal 1.005-<=1.025 [facility] Comment on above: Performed By: #### E RUR #### [facility] [address] [place] [address] Dr. Harini Jean UA PROTEIN Negative Normal NEGATIVE/ TRACE [facility] Comment on above: Performed By: #### E RUR #### [facility] [address] [place] [address] Dr. Harini Jean UR MICRO IND NOT INDICATED Normal [facility] Comment on above: Performed By: #### E RUR #### [facility] [address] [place] [address] Dr. Harini Jean Urobilinogen Qn (U) 1.0 {Mariella'U}/dL Normal 0.2 - 1.0 [facility] Comment on above: Performed By: #### E RUR #### [facility] [address] [place] [address] Dr. Harini Jean PROF CHEM 8 (BAS METB)on Anion gap [Moles/Vol] 9.4 mmol/L Normal [facility] Comment on above: Performed By: #### B MP, CRP #### [facility] [address] [place] [address] Dr. Harini Jean Calcium [Mass/Vol] 8.7 mg/dL Normal 8.5-10.1 [facility] Comment on above: Performed By: #### B MP, CRP #### [facility] [address] [place] [address] Dr. Harini Jean Chloride [Moles/Vol] 103 mmol/L Normal 98-107 [facility] Comment on above: Performed By: #### B MP, CRP #### [facility] [address] [address] [address] Harini Jean CO2 [Moles/Vol] 29.5 mmol/L Normal 21.0-32.0 [facility] Comment on above: Performed By: #### B MP, CRP #### [facility] [address] [address] [address] Harini Jean Creatinine [Mass/Vol] 0.97 mg/dL Normal 0.55-1.02 [facility] Comment on above: Performed By: #### B MP, CRP #### [facility] [address] [address] [address] Harini Jean EGFR-AF CITIZEN [place] >60 Normal >=60 [facility] Comment on above: Performed By: #### B MP, CRP #### [facility] [address] [address] [address] Harini Jean EGFR-NON AF CITIZEN OF [place] >60 Normal >=60 [facility] Comment on above: Performed By: #### B MP, CRP #### [facility] [address] [address] [address] Harini Jean Glucose [Mass/Vol] 93 mg/dL Normal 74-106 [facility] Comment on above: Performed By: #### B MP, CRP #### [facility] [address] [address] [address] Harini Jean Potassium [Moles/Vol] 3.9 mmol/L Normal 3.5-5.1 [facility] Comment on above: Performed By: #### B MP, CRP #### [facility] [address] [address] [address] Harini Jean Sodium [Moles/Vol] 138 mmol/L Normal 136-145 [facility] Comment on above: Performed By: #### B MP, CRP #### [facility] [address] [address] [address] Harini Jean Urea nitrogen [Mass/Vol] 16.0 mg/dL Normal 7.0-18.0 [facility] Comment on above: Performed By: #### B MP, CRP #### [facility] [address] [place], [place] [address] Dr. Harini Jean Urea nitrogen/Creatinin e [Mass ratio] 16.5 mg/mg Normal [facility] Comment on above: Performed By: #### B MP, CRP #### [facility] [address] [place], [place] [address] Dr. Harini Jean SED RATE WESTERGRENon 2021 SED RATE 24 mm/hr Critically high <=20 [facility] Comment on above: Performed By: #### S EDR ####[facility] [address] [place], [place] [address]SrDr. Harini Jean XR LSPINE 2_3 VIEWSon 2021 XR LSPINE 2_3 VIEWS EXAMINATION: XR LSPINE 2_3 VIEWS, , 07/18/2021 8:22 PM EDT INDICATION: Pain HISTORY: Ordering Provider Reason for Exam: Technologist Note: Additional: COMPARISON: None. TECHNIQUE: Lumbar spine x-ray: 3 view(s). FINDINGS: No acute fracture or traumatic malalignment. Normal lumbar lordosis. No listhesis. No abnormal curvature. Vertebral body heights are normal. Disc heights are maintained. Visualized soft tissues are unremarkable. IMPRESSION: No acute fracture or traumatic malalignment. Electronically authenticated by: CARLOS ALBERTO CALLE Date: 2021-07-18 21:34 Normal [facility] Covid-19 PCR (CVDTB)on 04-07 SARS-CoV-2 (COVID-19) RNA ALBERTO+probe Ql (Unsp spec) Not detected Normal NOT DETECTED [facility] Comment on above: Result Comment: This test is not yet approved or cleared by the [place] FDA. When there are no FDA-approved or cleared tests available, and other criteria are met, FDA can make tests available under an emergency access mechanism called an Emergency Use Authorization (EUA). The EUA for this test is supported by the [employer] of Health and Human Service's (HHS's) declaration that circumstances exist to justify the emergency use of in vitro diagnostics for the detection and/or diagnosis of the virus that causes COVID-19. This EUA will remain in effect (meaning this test can be used) for the duration of the COVID-19 declaration justifying emergency of IVDs, unless it is terminated or revoked by FDA (after which the test may no longer be used). When diagnostic testing is negative, the possibility of a false negative should be considered in the context of a patient's recent exposures and the presence of clinical signs and symptoms consistent with SARS-CoV-2. Performed By: #### C [facility] #### [facility] [address] [place] [address] Dr. Harini Jean [facility] 10-19-2017 [facility] Letter Treva Ramires:How to activate your [facility] [employer] Account 1. Visit the [employer] Signup page at [email or web address] 2. Identify yourself using your one-time use activation code: [email or web address] s: 11/18/2017 3:16 PMThis activation code was e-mailed to m 3. Follow the on-screen prompts to choose your own secure username andpasswordThe following information will be necessary to access your account for thefirst time:Information needed for sign-up:Your custom activation code used one-time only for the initial accountset-up.Your date of birthThe last 4 digits of your social security numberWhat to do next:Fill in the requested information on the Identify Yourself Form [email or web address] , click Next.Create your login and password, choose a [employer] ID and password that will beeasy for you to use, but impossible for anyone else to guess.Pick a security question that will assist you in the event you forget yourpassword the next time you log-on.If you have difficulty activating your account, please call our [employer] at [phone] or toll free at .We hope you enjoy using [employer]!Kindest Regards,[facility] [employer] Team Normal [facility] Vital Signs Date Time Vital Sign Value Performing Clinician Facility 01-02-2024 11:06-0400 Body height 162.56 cm [facility] 01-02-2024 11:06-0400 Body mass index (BMI) [Ratio] 38.1 kg/m2 [facility] 01-02-2024 11:06-0400 Body weight 100.75 kg [facility] 01-02-2024 11:06-0400 Diastolic blood pressure 76 mm[Hg] [facility] 01-02-2024 11:06-0400 Heart rate 88 /min [facility] 01-02-2024 11:06-0400 Systolic blood pressure 112 mm[Hg] [facility] 10-24-2023 08:36-0400 Body height 162.56 cm [facility] 10-24-2023 08:36-0400 Body mass index (BMI) [Ratio] 37.9 kg/m2 [facility] 10-24-2023 08:36-0400 Body weight 100.24 kg [facility] 10-24-2023 08:36-0400 Diastolic blood pressure 93 mm[Hg] [facility] 10-24-2023 08:36-0400 Heart rate 80 /min [facility] 10-24-2023 08:36-0400 Systolic blood pressure 133 mm[Hg] [facility] 06-29-2023 11:38-0400 Body height 162.56 cm [facility] 06-29-2023 11:38-0400 Body mass index (BMI) [Ratio] 37.5 kg/m2 [facility] 06-29-2023 11:38-0400 Body weight 99.39 kg [facility] 06-29-2023 11:38-0400 Diastolic blood pressure 83 mm[Hg] [facility] 06-29-2023 11:38-0400 Heart rate 83 /min [facility] 06-29-2023 11:38-0400 Systolic blood pressure 118 mm[Hg] [facility] 02-24-2023 10:30-0500 Body height 162.56 cm Akanksha Jack [facility] 02-24-2023 10:30-0500 Body mass index (BMI) [Ratio] 38.45 kg/m2 Akanksha Jack [facility] 02-24-2023 10:30-0500 Body temperature 97.2 [degF] Akanksha Jack [facility] 02-24-2023 10:30-0500 Body weight 101.61 kg Akanksha Jack [facility] 02-24-2023 10:30-0500 Diastolic blood pressure 83 mm[Hg] Akanksha Jack [facility] 02-24-2023 10:30-0500 Systolic blood pressure 123 mm[Hg] Akanksha Jack [facility] 12-17-2022 10:45-0400 Body height 162.56 cm Akanksha Jack [facility] 12-17-2022 10:45-0400 Body mass index (BMI) [Ratio] 38.1 kg/m2 Akanksha Jack [facility] 12-17-2022 10:45-0400 Body temperature 98.9 [degF] Akanksha Jack [facility] 12-17-2022 10:45-0400 Body weight 100.7 kg Akanksha Jack [facility] 12-17-2022 10:45-0400 Diastolic blood pressure 78 mm[Hg] Akanksha Jack [facility] 12-17-2022 10:45-0400 Respiratory rate 12 /min Akanksha Jack [facility] 12-17-2022 10:45-0400 SaO2% (BldA) [Mass fraction] 97 % Akanksha Jack [facility] 12-17-2022 10:45-0400 Systolic blood pressure 128 mm[Hg] Akanksha Jack [facility] 10-19-2022 12:00-0400 Body height 162.56 cm Akanksha Jack [facility] 10-19-2022 12:00-0400 Body mass index (BMI) [Ratio] 38.62 kg/m2 Akanksha Jack [facility] 10-19-2022 12:00-0400 Body temperature 97.5 [degF] Akanksha Jack [facility] 10-19-2022 12:00-0400 Body weight 102.06 kg Akanksha Jack [facility] 10-19-2022 12:00-0400 Diastolic blood pressure 85 mm[Hg] Akanksha Jack [facility] 10-19-2022 12:00-0400 Systolic blood pressure 134 mm[Hg] Akanksha Jack [facility] 09-01-2022 11:45-0400 Body height 162.56 cm Akanksha Jack [facility] 09-01-2022 11:45-0400 Body mass index (BMI) [Ratio] 38.45 kg/m2 Akanksha Jack [facility] 09-01-2022 11:45-0400 Body weight 101.61 kg Akanksha Jack [facility] 09-01-2022 11:45-0400 Diastolic blood pressure 90 mm[Hg] Akanksha Jack [facility] 09-01-2022 11:45-0400 Systolic blood pressure 133 mm[Hg] Akanksha Jack [facility] 08-25-2022 09:30-0400 Body height 162.56 cm Akanksha Jack [facility] 08-25-2022 09:30-0400 Body mass index (BMI) [Ratio] 38.62 kg/m2 Akanksha Jack [facility] 08-25-2022 09:30-0400 Body weight 102.06 kg Akanksha Jack [facility] 08-25-2022 09:30-0400 Diastolic blood pressure 82 mm[Hg] Akanksha Jack Other [facility] 08-25-2022 09:30-0400 Systolic blood pressure 128 mm[Hg] Akanksha Jack Other [facility] Encounters Encounter Date Encounter Type Care Provider Facility Start: 01-02-2024 End: 01-02-2024 ambulatory [facility] Work Phone: Start: 01-02-2024 End: 01-02-2024 Patient encounter procedure [facility] Work Phone: Start: 10-24-2023 End: 10-24-2023 ambulatory [facility] Work Phone: Start: 10-24-2023 End: 10-24-2023 Patient encounter procedure [facility] Work Phone: Start: 06-29-2023 End: 06-29-2023 ambulatory [facility] Work Phone: Start: 06-29-2023 End: 06-29-2023 Patient encounter procedure [facility] Work Phone: Start: 03-24-2023 End: 03-24-2023 ambulatory Akanksha Jack Other [facility] Start: 03-24-2023 Telephone encounter Akanksha Jack [facility] Start: 02-24-2023 End: 02-24-2023 ambulatory Akanksha Jack Other [facility] Start: 02-24-2023 Office outpatient vi sit 15 minutes Akanksha Jack [facility] Start: 12-17-2022 End: 12-17-2022 ambulatory Akanksha Jack Other [facility] Start: 12-17-2022 Office outpatient vi sit 15 minutes Akanksha Jack [facility] Start: 10-19-2022 End: 10-19-2022 ambulatory Akanksha Jack Other [facility] Start: 10-19-2022 Office outpatient vi sit 15 minutes Akanksha Jack [facility] Start: 09-01-2022 End: 09-01-2022 ambulatory Akanksha Jack Other [facility] Start: 09-01-2022 Office outpatient vi sit 15 minutes Akanksha Jack [facility] Start: 08-25-2022 End: 08-25-2022 ambulatory Akanksha Jack Other [facility] Start: 08-25-2022 Office outpatient vi sit 15 minutes Akanksha Jack [facility] Start: 02-12-2022 End: 02-12-[address] AKANKSHA JACK Facility:[facility] Start: 02-12-2022 Adult health examination Ciara chikis [facility] Other [facility] Start: 02-12-2022 Gynecological examination normal Akanksha Jack Other [facility] Start: 07-31-2021 End: 08-01-[address] AKANKSHA JACK Facility:[facility] Start: 07-18-2021 End: 07-19-[address] AKANKSHA JACK Facility:[facility] Start: 04-22-2021 End: 04-22-[address] AKANKSHA JACK Facility:[facility] Start: 08-12-2017 End: 08-13-2017 Ambulatory Rafita Donnelly Facility:CD:[id number] Start: 08-02-2017 End: 08-03-2017 Ambulatory Rafita Donnelly Facility:CD:[id number] Start: 07-04-2017 End: 07-05-2017 Ambulatory DEFAULT PHYSICIAN Facility:[facility] Procedures Date Procedure Procedure Detail Performing Clinician Screening for malign ant neoplasm of breast Akanksha Jack Other Payers Date Payer Category Payer Self-pay 1975 Unknown [id number] 1975 Unknown [id number] 1975 Unknown [id number] 1975 Unknown [id number] 1958 Private Health Insurance [id number] Medicaid [id number] Private Health Insurance [id number] Private Health Insurance [employer] [id number] Unknown Social History Date Type Detail Facility Unknown if ever smoked [facility] Sex Assigned At Sex Assigned At Bir th [facility] Start: 06-29-2023 Tobacco smoking status NHIS Ex-smoker (finding) [facility] Start: 1975 Sex Assigned At Female F [facility] Evaluation note 02-24-2023 Note Date & Type Note Facility 02-24-2023 Evaluation note Encounter Date Diagnosis Assessment Notes Feb, Tension headache (ICD-10 - G44.209) consider excedrine, improve hydration, stretch and rrest. Feb, Trapezius muscle spasm (ICD-10 - M62.838) Trial of muscle relaxers when sleep schedule permits. Discussed cause of tension headache is likely from upperback/ neck [facility] Evaluation note 12-17-2022 Note Date & Type Note Facility 12-17-2022 Evaluation note Encounter Date Diagnosis Assessment Notes Dec, Bronchitis (ICD-10 - J40) Complete entire course of antibiotics as prescribed. Steroid should help with the sensation of chest tightness that she describes. Call or ER if shortness of breath worsens. Patient expresses understanding. [facility] Evaluation note 10-19-2022 Note Date & Type Note Facility 10-19-2022 Evaluation note Encounter Date Diagnosis Assessment Notes Oct, Acute non-recurren t maxillary sinusitis (ICD-10 - J01.00) Sinus infections can be triggered by a secondary infection from a viral URI or even seasonal allergies. Take medications as directed. Use saline nasal spray prior to presciption nasal spray. Take medications as directed, and complete all doses of medication even if you start to feel better. Patient verbalized understanding and agreement with treatment plan. [facility] Evaluation note 09-01-2022 Note Date & Type Note Facility 09-01-2022 Evaluation note Encounter Date Diagnosis Assessment Notes Aug, Left-sided chest pain (ICD-10 - R07.9) Pt agrees to stress test. States her father had an MT at a young age. Order sent to [facility] Evaluation note 08-25-2022 Note Date & Type Note Facility 08-25-2022 Evaluation note Encounter Date Diagnosis Assessment Notes Aug, Fatigue (ICD-10 - R53.83) Will evaluate labs and continue OTC allergy meds. Discussed sleep hygeine and shift work sleep disorder. [facility] Evaluation note Note Date & Type Note Facility Evaluation note No Information [employer] Other Evaluation note Note Date & Type Note Facility Evaluation note No assessment information availa ble [facility] Work Phone: Evaluation note Note Date & Type Note Facility Evaluation note Diagnosis Onset Date Generalized anxiety disorder acute Otitis externa acute [facility] Work Phone: History general Narrative - Reported Note Date & Type Note Facility History general Narrative - Reported Type Medical History Right upper quadrant abdominal p ain Medical History Family history of diabetes melli tus Medical History Depression Medical History JAZ (generalized anxiety disorde r) Medical History Fatigue Medical History Malaise Medical History Anemia Surgical History CYSTECTOMY Surgical History HYTERECTOMY Hospitalization History SEE SURGICAL HX [facility] Other Summary Purpose Family History Relationship Condition Age at Onset Recorded Date/T chandan father Hypertension Unknown Unknown Diabetes mellitus Unknown Heart disease Unknown sister Diabetes mellitus Unknown Advance Directives Advance Directive Response Recorded Date/ Time Advance Directives No June 27, 024 9:51am Chief Complaint and Reason for Visit Chief Complaint lice Chief Complaint ear issues, hot flas hes Chief Complaint ear issues, hot flas hes difficulty sleeping Reason for Visit Generalized anxiety disorder Otitis externa Additional Source Comments INFORMATION SOURCE (unrecogn ized section and content) DATE CREATED AUTHOR 08/23/2017 [facility] DATE CREATED AUTHOR AUTHOR'S ORGANIZ ATION 08/25/2017 [facility] DATE CREATED AUTHOR AUTHOR'S ORGANIZ ATION 10/19/2017 [facility] DATE CREATED AUTHOR AUTHOR'S ORGANIZ ATION 02/17/2022 [facility] REASON FOR VISIT (unrecogniz ed section and content) SInuses/Allergiestbh - chest painCONGESTION, NEG COVIDSINUS CONGESTIONnot feeling well after she eatsrefill Care Teams (unrecognized sec tion and content) Team Status: Active Member Role Status Dates Akanksha Jack MD Primary Care Provider Active Team Status: Inactive Member Role Status Dates Akanksha Jack MD Primary Care Provide r, Attending Provider Active Start: June 29, 2023 End: June 29, 2023 Team Status: Inactive Member Role Status Dates Akanksha Jack MD Primary Care Provide r, Attending Provider Active Start: October 24, 2023 End: October 24, 2023 Team Status: Inactive Member Role Status Dates Akanksha Jack MD Primary Care Provide r, Attending Provider Active Start: January 02, 2024 End: January 02, 2024 Goals (unrecognized section and content) Goals may be documented in a n alternate section FOR RECORDS PERTAINING TO PATIENTS WHO ARE OR HAVE BEEN ENROLLED IN A CHEMICAL DEPENDENCY/SUBSTANCEABUSE PROGRAM, SOME INFORMATION MAY BE OMITTED. This clinical summary was aggregated from multiple sources. Caution should be exercised in using it in the provision of clinical care. This summary normalizes information from multiple sources, and as a consequence, information in this document may materially change the coding, format and clinical context of patient data. In addition, data may be omitted in some cases. CLINICAL DECISIONS SHOULD BE BASED ON THE PRIMARY CLINICAL RECORDS. [employer] provides no warranty or guarantee of the accuracy or completeness of information in this document.
--- NOTE | 2024-02-15 20:48 | ECG_ITS ---
[facility] Test Date: 2024-02-15 Pat Name: ADRIEN ALVES Department: Room: - Gender: Female Triage Technician: : 1975 Requested By: EDOUARD BULL Order Number: [id number] Reading MD: JACINTO العلي Measurements Intervals [place] Rate: 101 P: 120 DC: 146 QRS: 139 QRSD: 66 T: 124 QT: 330 QTc: 388 Interpretive Statements 1220 Rapid atrial rhythm 5120 Possible right ventricular hypertrophy 0101 Possible arm leads reversed, check lead requested 9140 abnormal rhythm ECG Compared to ECG 08/27/2022 08:00:34 Sinus rhythm no longer present Electronically Signed On 02-16-2024 17:41:26 EST by JACINTO العلي
--- NOTE | 2024-02-15 20:49 | ED.URI1 ---
HPI - URI/Sore Throat General Chief Complaint: Upper Respiratory Infection Stated Complaint: cough Time Seen by Provider: 02/15/24 20:38 Source: patient Limitations: no limitations History of Present Illness HPI Narrative: This 48-year-old female with a history of asthma presents for evaluation of 1 week of cough with productive green phlegm and chest pain that has been present for approximately 1 week however she developed pain in her right ribs earlier today. She thinks this is from coughing. She does not smoke. She denies any dizziness or syncope. She has not had a fever. She denies any abdominal pain. She has no lower extremity pain or swelling. Related Data Home Medications ?Medication ?Instructions ?Recorded ?Confirmed venlafaxine 37.5 mg 37.5 mg PO QDAY 08/27/22 02/15/24 capsule,extended release 24 hr albuterol sulfate 2.5 mg/3 mL 2.5 mg inhalation Q4H PRN 12/23/22 02/15/24 (0.083 %) solution for nebulization shortness of breath or wheezing albuterol sulfate 90 mcg/actuation 2 puff inhalation Q4H PRN 12/23/22 02/15/24 aerosol inhaler shortness of breath or wheezing Allergies Allergy/AdvReac Type Severity Reaction Status Date / Time cefaclor (From [facility]) Allergy Hives Verified 02/15/24 20:22 Review of Systems ROS Status of ROS 10 or more systems reviewed and unremarkable except as noted in history and below PFSH PFSH Social History Smoking status: Former smoker Little interest or pleasure in doing things: not at all Feeling down, depressed, or hopeless: not at all Exam Narrative Exam Narrative: Vital signs and Nursing Notes reviewed: Patient is afebrile with a normal pulse, blood pressure is mildly elevated 147/94, she is not hypoxic with pulse ox of 100% on room air General: Overweight female, she is awake, alert, oriented with no acute distress, lying comfortably on the stretcher, she is speaking in complete sentences without any conversational dyspnea HEENT: Normocephalic atraumatic, mucous membranes are moist and pink, eyes are clear, normal conjunctiva, vision is grossly intact Neck: Supple, no meningeal signs, no anterior or posterior cervical lymphadenopathy Chest: Lungs are clear to auscultation with good air entry, there is no wheezing rhonchi or rales appreciated no accessory muscle use, patient is speaking in complete sentences-no chest wall tenderness to palpation CVS: Regular rate and rhythm S1-S2, no murmurs rubs or gallops, pulses are brisk and equal bilaterally ABD: Soft, nondistended, nontender, no rebound guarding or rigidity, bowel sounds are normal, no pulsatile masses appreciated Extremities: Moving all extremities, no lower extremity tenderness or swelling noted, negative Homans' sign, pulses are brisk and equal bilaterally Skin: Normal in appearance without rash,pallor, petechiae or purpura Neuro: No focal deficits Constitutional Vital Signs, click to edit/add: Last Vital Signs Temp 98 F 02/15/24 20:23 Pulse 98 H 02/15/24 20:23 Resp 14 02/15/24 20:23 BP 147/94 H 02/15/24 20:23 Pulse Ox 96 02/15/24 21:30 O2 Del Method Room Air 02/15/24 21:30 Course Vital Signs Vital signs: Vital Signs Temperature 98 F 02/15/24 20:23 Pulse Rate 98 H 02/15/24 20:23 Respiratory Rate 14 02/15/24 20:23 Blood Pressure 147/94 H 02/15/24 20:23 Pulse Oximetry 100 02/15/24 20:23 Oxygen Delivery Method Room Air 02/15/24 20:23 Temperature 98 F 02/15/24 20:23 Pulse Rate 98 H 02/15/24 20:23 Respiratory Rate 14 02/15/24 20:23 Blood Pressure 147/94 H 02/15/24 20:23 Pulse Oximetry 96 02/15/24 21:30 Oxygen Delivery Method Room Air 02/15/24 21:30 MDM - URI/Sore Throat MDM Narrative Medical decision making narrative: This 48-year-old female with a history of asthma who is a non-smoker presents for evaluation of midsternal chest pain that has been present for approximately 1 week with coughing with productive green phlegm as well as right sided rib pain. She denies any dizziness or syncope. She has not had a fever. She has been using her breathing treatments at home. Patient's vital signs are stable. Her pulse ox is normal. Her lungs were clear. Abdomen is soft. There is no lower extremity pain or swelling. She is obese. Her Wells criteria was negative with the exception of obesity. An EKG was ordered that is a sinus rhythm at 100 bpm. An IV was placed and routine labs are ordered. She has a normal white count and hemoglobin. Electrolytes are normal. D-dimer and troponin are both normal. Two-view chest x-ray was ordered and reviewed by myself. There is a streaky area of atelectasis versus infiltrate in the right lower lobe. This is likely the etiology of her rib pain. The patient feels that she would benefit from a breathing treatment and steroids. She will be given a DuoNeb treatment in emergency department and a dose of Solu-Medrol. She will be started on oral doxycycline for community-acquired pneumonia/asthmatic bronchitis exacerbation and discharged home with prescription for Medrol Dosepak, Bromfed-DM and the remainder of a 7-day course of doxycycline. She does not need any refills on her nebulizer medications or rescue inhalers. Lab Data Attestation: I reviewed the patient's lab results. Labs: Lab Results 02/15/24 Range/Units 21:10 WBC 8.7 (4.0-11.0) 10^3/uL RBC 4.17 L (4.20-5.40) 10^6/uL Hgb 12.6 (12.0-16.0) g/dL Hct 37.0 (36.0-48.0) % MCV 88.7 (81.0-99.0) fL MCH 30.2 (26.7-34.0) pg MCHC 34.1 (29.9-35.2) g/dL RDW 12.1 (11.0-15.0) % Plt Count 275 (150-450) 10^3/uL MPV 8.7 L (9.5-13.5) fL Neut % (Auto) 58.0 (43.0-75.0) % Lymph % (Auto) 32.7 (20.5-60.0) % [place] % (Auto) 6.9 (1.7-12.0) % Eos % (Auto) 1.6 (0.9-7.0) % Baso % (Auto) 0.5 (0.2-2.0) % Neut # (Auto) 5.1 (1.4-6.5) 10^3/uL Lymph # (Auto) 2.9 (1.2-3.8) 10^3/uL [place] # (Auto) 0.6 (0.3-0.8) 10^3/uL Eos # (Auto) 0.1 (0.0-0.7) 10^3/uL Baso # (Auto) 0.0 (0.0-0.1) 10^3/uL Abs Immat Gran (auto) 0.03 (0.00-0.03) 10^3/uL Imm/Tot Granulo (auto) 0.3 (0.0-0.5) % D-Dimer <0.19 (<=0.59) mg/L FEU Sodium 141 (136-145) mmol/L Potassium 3.6 (3.5-5.1) mmol/L Chloride 104 (98-107) mmol/L Carbon Dioxide 29.4 (21.0-32.0) mmol/L Anion Gap 11.2 BUN 18.0 (7.0-18.0) mg/dL Creatinine 0.92 (0.55-1.02) mg/dL Est GFR ( Amer) >60 (>=60 mL/min/1.73m^2) Est GFR (Non-Af Amer) >60 (>=60 mL/min/1.73m^2) BUN/Creatinine Ratio 19.6 Glucose 96 (74-106) mg/dL Calcium 8.9 (8.5-10.1) mg/dL Total Bilirubin 0.2 (0.2-1.0) mg/dL AST 27 (15-37) U/L ALT 63 H (14-59) U/L Alkaline Phosphatase 166 H (46-116) U/L Troponin I High Sens 18.7 (4.0-51.3) pg/mL Total Protein 7.5 (6.4-8.2) g/dL Albumin 3.5 (3.4-5.0) g/dL Globulin 4.0 g/dL Albumin/Globulin Ratio 0.9 ECG Data Attestation: I personally reviewed and interpreted this ECG as follows: (Sinus rhythm at 100 bpm, right axis deviation, interpretation limited by patient movement, no acute ST segment elevation or T wave inversion) Discharge Plan Discharge Chief Complaint: Upper Respiratory Infection Clinical Impression: Atypical chest pain, RML pneumonia Patient Disposition: Home, Self-Care Time of Disposition Decision: 22:51 Condition: Good Prescriptions / Home Meds: No Action albuterol sulfate 2.5 mg /3 mL (0.083 %) solution for nebulization 2.5 mg inhalation Q4H PRN (Reason: shortness of breath or wheezing) albuterol sulfate 90 mcg/actuation HFA aerosol inhaler 2 puff INHALATION Q4H PRN (Reason: shortness of breath or wheezing) venlafaxine 37.5 mg capsule,extended release 24hr 37.5 mg PO QDAY Print Language: Amharic Instructions: Noncardiac Chest Pain (ED), Pneumonia (ED) Referrals: Akanksha Jack MD [Primary Care Provider] - 1 week
[2024-02-15 21:21] LABS: Basophils Percent Auto 0.5 % (0.2-2.0); Eosinophils Absolute Auto 0.1 10^3/uL (0.0-0.7); Eosinophils Percent Auto 1.6 % (0.9-7.0); Hemoglobin 12.6 g/dL (12.0-16.0); Immature Granulocytes Abs Auto 0.03 10^3/uL (0.00-0.03); Immature Granulocytes Pct Auto 0.3 % (0.0-0.5); Lymphocytes Absolute Auto 2.9 10^3/uL (1.2-3.8); Lymphocytes Percent Auto 32.7 % (20.5-60.0); Mean Corpuscular HGB Conc 34.1 g/dL (29.9-35.2); Mean Corpuscular Hemoglobin 30.2 pg (26.7-34.0); Mean Corpuscular Volume 88.7 fL (81.0-99.0); Mean Platelet Volume 8.7 fL (9.5-13.5); Monocytes Absolute Auto 0.6 10^3/uL (0.3-0.8); Monocytes Percent Auto 6.9 % (1.7-12.0); Neutrophils Absolute Auto 5.1 10^3/uL (1.4-6.5); Platelet Count 275 10^3/uL (150-450); Red Blood Count 4.17 10^6/uL (4.20-5.40); Red Cell Distribution Width 12.1 % (11.0-15.0); White Blood Count 8.7 10^3/uL (4.0-11.0)
[2024-02-15 21:36] LABS: Alanine Aminotransferase 63 U/L (14-59); Albumin Globulin Ratio 0.9; Albumin Level 3.5 g/dL (3.4-5.0); Alkaline Phosphatase 166 U/L (46-116); Anion Gap 11.2; Aspartate Amino Transferase 27 U/L (15-37); BUN Creatinine Ratio 19.6; Bilirubin Total 0.2 mg/dL (0.2-1.0); Calcium 8.9 mg/dL (8.5-10.1); Carbon Dioxide 29.4 mmol/L (21.0-32.0); Chloride 104 mmol/L (98-107); D Dimer <0.19 mg/L FEU (<=0.59); Estimated GFR (African America >60 (>=60 mL/min/1.73m^2); Estimated GFR (Non-African Ame >60 (>=60 mL/min/1.73m^2); Glucose 96 mg/dL (74-106); Potassium 3.6 mmol/L (3.5-5.1); Sodium 141 mmol/L (136-145); Total Protein 7.5 g/dL (6.4-8.2)
[2024-02-15 21:39] LABS: Troponin I High Sensitivity 18.7 pg/mL (4.0-51.3)
--- NOTE | 2024-02-15 22:07 | XR_ITS ---
The [address] [address] Patient Name: ADRIEN ALVES MRN: [id number] date: 1975 Sex: F Assigned Patient Location: ER Current Patient Location: ED.MAIN Accession/Order Number: [id number] Exam Date: 02/15/2024 22:35 Report Date: 02/15/2024 23:12 At the request of: ANGY MARKER Procedure: XR chest 2V EXAM: XR chest 2V HISTORY: cough, right sided rib pain COMPARISON: Chest radiograph dated 08/27/2022. TECHNIQUE: 2 views of the chest were obtained. FINDINGS: The cardiac silhouette is normal in size. There is mild left basilar atelectasis. There is no significant pneumothorax or pleural effusion. No acute osseous abnormality is seen. XR/XR chest 2V IMPRESSION: 1. Mild left basilar atelectasis with no acute cardiopulmonary abnormality. Electronically authenticated by: Alex ESPINAL Date: 02/15/2024 23:12
--- NOTE | 2024-02-15 22:36 | PC.NURSE ---
returns from XR.
[2024-02-15] MEDS: IPRATROPIUM/ALBUTEROL SULFATE 3 ML AMPUL.NEB IH (22:49)
[2024-02-15] MEDS: DOXYCYCLINE MONOHYDRATE 100 MG CAPSULE PO (23:00)
[2024-02-15] MEDS: METHYLPREDNISOLONE SOD SUCC PF 125 MG/2 ML VIAL IVP (23:00)
== END 2024-02-15 23:10 | disposition home or self-care (01) ==
PROVIDERS: Emergency Provider Emergency Medicine; PCP Family Medicine
DX: J18.9 Pneumonia, unspecified organism (principal); R07.89 Other chest pain; J45.909 Unspecified asthma, uncomplicated
CPT/HCPCS: 36415; 71046; 80053; 84484; 85025; 85378; 93005; 94640; 96374; 99285; J2919

== ENCOUNTER 2024-09-18 06:47 | Outpatient (OUT) | payer OTHER, SELFPAY ==
--- OUTSIDE RECORDS SUMMARY | 2024-09-18 06:53 | XMS_ITS | CCD ---
Author Organization [facility] Care Team Providers Care Pantry Chef Name Role Phone Rafita Donnelly Unavailable Unavailable NONE, XXXX Unavailable Unavailable VernRafita toure Unavailable Unavailable NONE, XXXX Unavailable Unavailable PHYSICIAN, DEFAULT Unavailable Unavailable PHYSICIAN, DEFAULT Unavailable Unavailable ML, DR AKANKSHA Lackey Admitting Unavailable JACK, DR AKANKSHA Lackey Attending Unavailable JACK, DR AKANKSHA Lackey Primary Care Unavailable JACK, DR AKANKSHA Lackey Primary Care Unavailable JOCELYNE, MARQUIS Admitting Unavailable JOCELYNE, MARQUIS Attending Unavailable MARQUIS CASANOVA Consulting Unavailable AHALIZE, CARLOS ALBERTO Consulting Unavailable JACK, DR AKANKSHA Lackey Admitting Unavailable JACK, DR AKANKSHA Lackey Attending Unavailable JACK, DR AKANKSHA Lackey Primary Care Unavailable JACK, DR AKANKSHA Lackey Consulting Unavailable JACK, DR AKANKSHA Lackey Primary Care Unavailable PAY, DR REY Admitting Unavailable PAY, DR REY Attending Unavailable PAY, DR REY Consulting Unavailable WILFRID DOOLEY Consulting Unavailable WOMACK, GIMichael Consulting Unavailable Akanksha Jack Unavailable Akanksha Jack MD Primary Care Provider Akanksha Jack MD Attending Provider Allergies Allergy Classification Reported Allergen(s) Allergy Type Date of Onset Reaction(s) Facility (3 sources) Cefaclor Drug Allergy 01-27-20 13 Unknown [facility] (10 sources) Morphine Drug Allergy 06-14-19 Unknown, [facility] (4 sources) Morphine Sulfate (Concentrate) *ANALGESICS - OPIOI Propensity to adverse reactions Unknown [facility] Other (4 sources) Ceclor *CEPHALOSPORINS* Propensity to adverse reactions 02-21-20 18 Unknown [facility] Other (4 sources) Cephalosporins (Antibiotic) Allergy to substance 06-29-19 [facility] Comment on above: Onset Date: 12/17/20 18 Medications Current Medications Medication Drug Class(es) Dates [...] tablets as needed Orally as needed Active 24 hr venlafaxine 37.5 mg extended release oral capsule (20 sources) Serotonin and Norepinephrine Reuptake Inhibitor Start: 12-12-2023 take 1 capsule by mouth once daily Venlafaxine Active 0 .ROUTE .COMPLEX December 12, 2023 9:01am TAKE 1 CAPSULE BY MOUTH EVERY DAY Start: 10-17-2023 End: 08-24-2024 take 1 capsule by mouth once daily Venlafaxine 37.5 mg capsule,extended release 24hr Active 0 .ROUTE .COMPLEX August 24, 2024 12:56pm TAKE 1 CAPSULE BY MOUTH EVERY DAY Complies with drug therapy Start: 10-17-2023 End: 11-18-2023 take 1 capsule by mouth once daily Venlafaxine Discontinued 0 .ROUTE .COMPLEX October 17, 2023 11:46am November 18, 2023 8:19am TAKE 1 CAPSULE BY MOUTH EVERY DAY Start: 10-17-2023 take 1 capsule by mo uth once daily Venlafaxine Active 0 .ROUTE .COMPLEX October 17, 2023 11:46am TAKE 1 CAPSULE BY MOUTH EVERY DAY Start: 04-27-2023 End: 10-17-2023 take 1 capsule by mouth once daily Venlafaxine 37.5 mg capsule,extended release 24hr Discontinued 1 CAP PO Daily April 27, 2023 1:00am October 17, 2023 11:46am FreeTextSig: TAKE ONE CAPSULE BY MOUTH DAILY; Note: Source Status: Refill; Refills: 5; Qty: 30 Each; Provider: Ml Lackey take 1 capsule by mo uth once daily Venlafaxine HCl ER 37.5 mg TAKE ONE CAPSULE BY MOUTH DAILY for 30 Active Completed/Discontinued Medications Medication Drug Class(es) Dates Sig (Normalized) Sig (Original) [id number] 200 actuat albuterol 0.09 mg/actuat metered dose inhaler (4 sources) beta2-Adrenergic Agonist Start: 06-29-2023 End: 01-02-2024 Albuterol Sulfate 90 mcg/actuation HFA aerosol inhaler Discontinued 1 INH INHALATION Every 6 hours June 29, 2023 12:00am January 02, 2024 11:13am azithromycin 1000 mg powder for oral suspension (8 sources) Macrolide Antimicrobial Start: 02-21-2024 End: 09-17-2024 take 1 g by mouth once daily Azithromycin (Zithromax) 1 gram packet Discontinued 1 GM PO Daily February 21, 2024 1:00am September 17, 2024 9:36am Start: 04-27-2023 End: 06-29-2023 take 2 tablets by mouth once daily, then take 1 tablet by mouth once daily Azithromycin 250 mg tablet Discontinued TAB PO Daily April 27, 2023 [...] / neomycin 3.5 mg/ml / polymyxin b [id number] unt/ml otic suspension (3 sources) Aminoglycoside Antibacterial, Polymyxin-class Antibacterial, Corticosteroid Start: 10-24-2023 End: 01-02-2024 Nfdbqovy-Gyexmwxvw-Gz 3.5-10,000-1 mg/mL-unit/mL-% drops,suspension Discontinued 4 DROPS OTIC Three times daily October 24, 2023 12:00am January 02, 2024 11:13am methylPREDNISolone 4 mg oral tablet (7 sources) Corticosteroid Start: 04-27-2023 End: 06-29-2023 Methylprednisolone 4 mg tablets,dose pack Discontinued MG PO As Directed April 27, 2023 1:00am June 29, 2023 11:42am FreeTextSig: as directed Orally; Note: Source Status: Taking; Refills: 0; Qty: 1 Packet; Provider: Ml Lackey Start: 04-27-2023 End: 06-29-2023 Methylprednisolone Discontin ued MG PO As Directed April 27, 2023 1:00am June 29, 2023 11:42am FreeTextSig: as directed Orally; Note: Source Status: Taking; Refills: 0; Qty: 1 Packet; Provider: Ml Lackey Start: 12-17-2022 methylPREDNISo lone 4 MG as directed Orally for 6 days Dec, Active ondansetron 4 mg disintegrating oral tablet (1 source) Serotonin-3 Receptor Antagonist Start: 02-23-2024 End: 09-17-2024 take 1 tablet by mouth every eight hours as needed for nausea and vomiting Ondansetron 4 mg tablet,disintegrating Discontinued 4 MG PO Q8H as needed for nausea and vomiting February 23, 2024 1:00am September 17, 2024 9:51am permethrin 50 mg/ml topical cream (4 sources) Pyrethroid Start: 06-29-2023 End: 01-02-2024 Permethrin 5 % cream Discontinued 1 APPLIC TOPICAL Q14D 60 June 29, 2023 12:00am January 02, 2024 11:13am apply second treatment 14 days after first treatment if live lice remain tiZANidine 4 mg oral tablet (6 sources) Central alpha-2 Adrenergic Agonist Start: 04-27-2023 End: 06-29-2023 take 1 tablet by mouth once daily at bedtime as needed Tizanidine 4 mg tablet Discontinued MG PO April 27, 2023 1:00am June 29, 2023 11:42am FreeTextSi tablet as needed Orally qhs prn; Note: Source Status: Start; Provider: Ml Lackey take 1 tablet by ansir once daily at bedtime as needed tiZANidine HCl 4 MG 1 tablet as needed Orally qhs prn for 10 days Active Problems Active Problems Problem Classification Problem Date Documented Date Episodic/Chronic Abdominal pain (10 sources) Right upper quadrant pain; Translations: [Right upper quadrant pain] Episodic Acute bronchitis (8 sources) Acute bronchitis; Translations: [Acute bronchitis due to other specified organisms] Episodic Anxiety disorders (13 sources) Generalized anxiety disorder; Translations: [Generalized anxiety [...] Episodic Other ear and sense organ disorders (2 sources) Otitis externa; Translations: [Unspecified otitis externa, unspecified ear] 10-25-2023 Chronic Other ear and sense organ disorders (1 source) Unspecified otitis externa, unspecified ear; Translations: [Infective otitis externa, unspecified] 10-24-2023 Chronic Other infections; including parasitic (3 sources) Pediculosis capitis; Translations: [Pediculosis due to Pediculus humanus capitis] 06-29-2023 Episodic Other nutritional; endocrine; and metabolic disorders (12 sources) Obese class II; Translations: [Body mass index (BMI) 38.0-38.9, adult] Chronic Other screening for suspected conditions (not mental disorders or infectious disease) (8 sources) Abnormal findings on diagnostic imaging of breast; Translations: [Other abnormal and inconclusive findings on diagnostic imaging of breast] 09-17-2024 Episodic Other upper respiratory disease (4 sources) Disorder of pharynx; Translations: [Other diseases of pharynx] Episodic Other upper respiratory infections (5 sources) Chronic sinusitis, unspecified; Translations: [Chronic sinusitis] Onset: 04-24-2021 Chronic Other upper respiratory infections (10 sources) Acute upper respiratory infection, unspecified; Translations: [Acute pharyngitis] Onset: 02-16-2022 Episodic Pneumonia (except that caused by tuberculosis or sexually transmitted disease) (1 source) Pneumonia; Translations: [Pneumonia, unspecified organism] 02-23-2024 Episodic Residual codes; unclassified (4 sources) Obstructive sleep apnea syndrome; Translations: [Obstructive sleep apnea (adult) (pediatric)] Chronic Residual codes; unclassified (6 sources) Family history of diabetes mellitus; Translations: [Family history of diabetes mellitus] Episodic Residual codes; unclassified (1 source) Insomnia; Translations: [Insomnia, unspecified] 01-08-2024 Episodic Spondylosis; intervertebral disc disorders; other back [...] Translations: [LOW BACK PAIN, UNSPECIFIED] Onset: 08-04-2021 Unclassified (2 sources) Patient encounter status; Translations: [Z12.11 - Encounter for screening for malignant neoplasm of colon] Past or Other Problems Problem Classification Problem [...] spec) Not detected Normal NOT DETECTED [facility] Comment on above: Result Comment: When diagnostic [...] for this test is supported by the [employer] Specialist of Health and Human Service's declaration that [...] be used). Performed By: #### C VDTBH ####[facility] [id number], [place] [address]ZmDr. Harini Jean GROUP A STREP CULTUREon S. pyogenes Ag Ql (Unsp spec) Culture Observations: NEGATIVE FOR GROUP A STREPTOCOCCUS. Normal [facility] Comment on above: Performed By: #### G RASTCX, SSCRN #### [facility] [address], [place] [address] Dr. Harini Jean INFLUENZA A AND B AGon 02-12 INFLUANEGH SEE BELOW Normal [facility] [place] Comment on above: Result Comment: Nega tive for Flu A protein angiten. Infection due to Flu A cannot be ruled out. Flu A angiten in the sample may be below the detection limit of the test. Performed By: #### I NFLUAB #### [facility] [address] [place] [address] Dr. Harini Jena INFLUBNEGH SEE BELOW Normal [facility] [place] Comment on above: Result Comment: Nega tive for Flu B protein antigen. Infection due to Flu B cannot be ruled out. Flu B antigen in the sample may be below the detection limit of the test. Performed By: #### I NFLUAB #### [facility] [address] [place] [address] Dr. Harini Jean INFLUENZA A AG Negative Normal NEGATIVE SEE COMMENT [facility] Comment on above: Performed By: #### I NFLUAB #### [facility] [address] [place] [address] Dr. Harini Jean INFLUENZA B AG Negative Normal NEGATIVE SEE COMMENT [facility] Comment on above: Performed By: #### I NFLUAB #### [facility] [address] [place] [address] Dr. Harini Jean INTERNAL CONTROLS Within Normal Limits Normal Wi thin Normal Limits [facility] Comment on above: Performed By: #### I NFLUAB #### [facility] [address] [place] [address] Dr. Harini Jean STREPT SCREENon 02-12-2022 STREP SCREEN A Negative Normal NEGATIVE [facility] Comment on above: Performed By: #### G RASTCX, SSCRN #### [facility] [address] [place] [address] Dr. Harini Jean XR CHEST 2 Von [...] SAUL WOMACK Date: 2022-02-12 20:23 Normal [facility] CBC AUTO DIFFon 07-18-2021 BASO # 0.0 103/ul Normal 0.0-0.1 [facility] [place] Comment on above: Performed By: #### C BC #### [facility] [address] [place] [address] [address] Harini Jean Basophils/100 WBC (Bld) 0.4 % Normal 0.2-2.0 [facility] Comment on above: Performed By: #### C BC #### [facility] [address] [address] [address] Harini Jean EO # 0.1 103/ul Normal 0.0-0.7 [facility] [place] Comment on above: Performed By: #### C BC #### [facility] [address] [place] [address] Dr. Harini Jean Eosinophils/100 WBC (Bld) 1.2 % Normal 0.9-7.0 [facility] Comment on above: Performed By: #### C BC #### [facility] [address] [address] [address] Harini Jean Erythrocyte distribution width (RBC) [Ratio] 12.2 % Normal 11.0-15.0 [facility] [place] Comment on above: Performed By: #### C BC #### [facility] [address] [address] [address] Harini Jean Hematocrit (Bld) [Volume fraction] 35.1 % Critically low 36.0-48.0 [facility] [place] Comment on above: Performed By: #### C BC #### [facility] [address] [address] [address] Harini Jean Hemoglobin (Bld) [Mass/Vol] 11.4 g/dL Critically low 12.0-16.0 [facility] [place] Comment on above: Performed By: #### C BC #### [facility] [address] [address] [address] Harini Jean IG # 0.02 10e3/ul Normal 0.00-0.03 [facility] Comment on above: Performed By: #### C BC #### [facility] [address] [place] [address] Dr. Harini Jean IG % 0.3 % Normal 0.0-0.5 [facility] [place] Comment on above: Performed By: #### C BC #### [facility] [address] [place] [address] Dr. Harini Jean LYMPH # 2.8 103/ul Normal 1.2-3.8 [facility] Comment on above: Performed By: #### C BC #### [facility] [address] [place] [address] Dr. Harini Jean Lymphocytes/100 WBC (Bld) 37.5 % Normal 20.5-60.0 [facility] Comment on above: Performed By: #### C BC #### [facility] [address] [place] [address] Dr. Harini Jean MANUAL DIFF REQ NO Normal [facility] Comment on above: Performed By: #### C BC #### [facility] [address] [place] [address] Dr. Harini Jean MCH (RBC) [Entitic mass] 29.5 pg Normal 26.7-34.0 [facility] [place] Comment on above: Performed By: #### C BC #### [facility] [address] [place] [address] Dr. Harini Jean MCHC (RBC) [Mass/Vol] 32.5 g/dL Normal 29.9-35.2 [facility] Comment on above: Performed By: #### C BC #### [facility] [address] [place] [address] Dr. Harini Jean MCV (RBC) [Entitic vol] 90.7 fL Normal 81.0-99.0 [facility] Comment on above: Performed By: #### C BC #### [facility] [address] [place] [address] Dr. Harini Jean MONO # 0.6 103/ul Normal 0.3-0.8 [facility] Comment on above: Performed By: #### C BC #### [facility] [address] [place] [address] Dr. Harini Jean Monocytes/100 WBC (Bld) 7.6 % Normal 1.7-12.0 [facility] Comment on above: Performed By: #### C BC #### [facility] [address] [place] [address] Dr. Harini Jean NEUT # 4.0 103/ul Normal 1.4-6.5 [facility] Comment on above: Performed By: #### C BC #### [facility] [address] [place] [address] Dr. Harini Jean Neutrophils/100 WBC (Bld) 53.0 % Normal 43.0-75.0 [facility] Comment on above: Performed By: #### C BC #### [facility] [address] [place] [address] Dr. Harini Jean Platelet mean volume (Bld) [Entitic vol] 8.4 fL Critically low 9.5-13.5 [facility] [place] Comment on above: Performed By: #### C BC #### [facility] [address] [place] [address] Dr. Harini Jean PLT 260 103/ul Normal 150-450 [facility] Comment on above: Performed By: #### C BC #### [facility] [address] [place] [address] Dr. Harini Jean RBC 3.87 106/ul Critically low 4.20-5.40 [facility] Comment on above: Performed By: #### C BC #### [facility] [address] [place] [address] Dr. Harini Jean WBC 7.5 103/ul Normal 4.0-11.0 [facility] Comment on above: Performed By: #### C BC #### [facility] [address] [place] [address] Dr. Harini Jean CRPon 07-18-2021 CRP 0.8 mg/dL Normal <=1.0 [facility] Comment on above: Performed By: #### B MP, CRP #### [facility] [address] [place] [address] Dr. Harini AGUILERA URINE PROFILEon 2 Bilirubin Ql (U) Negative Normal NEGATIVE [facility] Comment on above: Performed By: #### E RUR #### [facility] [address] [place] [address] Dr. Harini Jean Clarity (U) CLEAR Normal CLEAR [facility] Comment on above: Performed By: #### E RUR #### [facility] [address] [place] [address] Dr. Harini Jean Color (U) LT. YELLOW Normal YELLOW [facility] Comment on above: Performed By: #### E RUR #### [facility] [address] [place] [address] Dr. Harini WHALEN A micrscopic examination will be performed if indicated. Normal [facility] Comment on above: Performed By: #### E RUR #### [facility] [address] [place] [address] Dr. Harini Jean Glucose Ql (U) Negative Normal NEGATIVE [facility] Comment on above: Performed By: #### E RUR #### [facility] [address] [place] [address] Dr. Harini Jean Hemoglobin Ql (U) Negative Normal NEGATIVE [facility] Comment on above: Performed By: #### E RUR #### [facility] [address] [place] [address] Dr. Harini Jean Ketones Ql (U) Negative Normal NEGATIVE [facility] Comment on above: Performed By: #### E RUR #### [facility] [address] [place] [address] Dr. Harini Jean LEUKOCYTES Negative Normal NEGATIVE [facility] Comment on above: Performed By: #### E RUR #### [facility] [address] [place] [address] Dr. Harini Jean Nitrite Ql (U) Negative Normal NEGATIVE [facility] Comment on above: Performed By: #### E RUR #### [facility] [address] [place] [address] Dr. Harini Jean pH (U) 6.5 [pH] Normal 5-9 [facility] Comment on above: Performed By: #### E RUR #### [facility] [address] [place] [address] Dr. Harini Jean SPEC GRAVITY 1.015 Normal 1.005-<=1.025 [facility] Comment on above: Performed By: #### E RUR #### [facility] [address] [place] [address] Dr. Harini Jean UA PROTEIN Negative Normal NEGATIVE/ TRACE [facility] Comment on above: Performed By: #### E RUR #### [facility] [address] [place] [address] Dr. Harini Jean UR MICRO IND NOT INDICATED Normal [facility] Comment on above: Performed By: #### E RUR #### [facility] [address] [place] [address] Dr. Harini Jean Urobilinogen Qn (U) 1.0 {Mariella'U}/dL Normal 0.2 - 1.0 [facility] Comment on above: Performed By: #### E RUR #### [facility] [address] [place] [address] Dr. Harini Jean PROF CHEM 8 (BAS METB)on Anion gap [Moles/Vol] 9.4 mmol/L Normal [facility] Comment on above: Performed By: #### B MP, CRP #### [facility] [address] [place] [address] Dr. Harini Jean Calcium [Mass/Vol] 8.7 mg/dL Normal 8.5-10.1 [facility] Comment on above: Performed By: #### B MP, CRP #### [facility] [address] [place] [address] Dr. Harini Jean Chloride [Moles/Vol] 103 mmol/L Normal 98-107 [facility] Comment on above: Performed By: #### B MP, CRP #### [facility] [address] [place] [address] Dr. Harini Jean CO2 [Moles/Vol] 29.5 mmol/L Normal 21.0-32.0 [facility] Comment on above: Performed By: #### B MP, CRP #### [facility] [address] [address] [address] Harini Jean Creatinine [Mass/Vol] 0.97 mg/dL Normal 0.55-1.02 [facility] Comment on above: Performed By: #### B MP, CRP #### [facility] [address] [address] [address] Harini Jean EGFR-AF VIET[place]ESE >60 Normal >=60 [facility] Comment on above: Performed By: #### B MP, CRP #### [facility] [address] [address] [address] Harini Jean EGFR-NON AF VIETNAMESE >60 Normal >=60 [facility] Comment on above: Performed By: #### B MP, CRP #### [facility] [address] [address] [address] Harini Jean Glucose [Mass/Vol] 93 mg/dL Normal 74-106 [facility] Comment on above: Performed By: #### B MP, CRP #### [facility] [address] [address] [address] Harini Jean Potassium [Moles/Vol] 3.9 mmol/L Normal 3.5-5.1 [facility] Comment on above: Performed By: #### B MP, CRP #### [facility] [address] [address] [address] Harini Jean Sodium [Moles/Vol] 138 mmol/L Normal 136-145 [facility] Comment on above: Performed By: #### B MP, CRP #### [facility] [address] [address] [address] Harini Jean Urea nitrogen [Mass/Vol] 16.0 mg/dL Normal 7.0-18.0 [facility] Comment on above: Performed By: #### B MP, CRP #### [facility] [address] [address] [address] Harini Jean Urea nitrogen/Creatinin e [Mass ratio] 16.5 mg/mg Normal [facility] Comment on above: Performed By: #### B MP, CRP #### [facility] [address], [place] [address] Dr. Harini Jean SED RATE WESTERGRENon 2021 SED RATE 24 mm/hr Critically high <=20 [facility] Comment on above: Performed By: #### S EDR ####[facility] [id number], [place] [address]BrDr. Harini Jean XR LSPINE 2_3 VIEWSon 2021 [...] ALBERTO CALLE Date: 2021-07-18 21:34 Normal [facility]07 SARS-CoV-2 (COVID-19) RNA ALBERTO+probe Ql (Unsp spec) Not detected Normal NOT DETECTED [facility] Comment on above: Result Comment: This test is not yet approved or cleared by the [place] FDA. When there are no FDA-approved or cleared tests available, and other criteria are met, FDA can make tests available under an emergency access mechanism called an Emergency Use Authorization (EUA). The EUA for this test is supported by the [employer] Specialist of Health and Human Service's (HHS's) declaration [...] consistent with SARS-CoV-2. Performed By: #### C [facility] #### [facility] [address] [place] [address] Dr. Harini GUZMANOon 10-19-2017 CNCO Letter Treva Ramires:How to activate your [facility] [employer] Account 1. Visit the [employer] Signup page at [email or web address] 2. Identify yourself using your one-time use activation code: [email or web address] s: 11/18/2017 3:16 PMThis activation code was e-mailed to [email or web address] 3. Follow the on-screen prompts to choose your own secure username andpasswordThe following information will be necessary to access your account for thefirst time:Information needed for sign-up:Your custom activation code used one-time only for the initial accountset-up.Your date of birthThe last 4 digits of your social security numberWhat to do next:Fill in the requested information on the Identify Yourself Form [email or web address] , click Next.Create your login and password, choose a [employer] ID and password that will beeasy for you to use, but impossible for anyone else to guess.Pick a security question that will assist you in the event you forget yourpassword the next time you log-on.If you have difficulty activating your account, please call our [employer] at [phone] or toll free at .We hope you enjoy using [employer]!Kindest Regards,[facility] [employer] Team Normal [facility] Vital Signs Date Time Vital Sign Value Performing Clinician Facility 09-17-2024 09:31-0400 Body height 162.56 cm Akanksha Jack MD Work Phone: [facility] 09-17-2024 09:31-0400 Body mass index (BMI) [Ratio] 36.9 kg/m2 Akanksha Jack MD Work Phone: [facility] 09-17-2024 09:31-0400 Body weight 97.63 kg Akanksha Jack MD Work Phone: [facility] 09-17-2024 09:31-0400 Diastolic blood pressure 83 mm[Hg] Akanksha Jack MD Work Phone: [facility] 09-17-2024 09:31-0400 Heart rate 87 /min Akanksha Jack MD Work Phone: [facility] 09-17-2024 09:31-0400 Systolic blood pressure 119 mm[Hg] Akanksha Jack MD Work Phone: [facility] 01-02-2024 11:06-0400 Body height 162.56 cm [facility] 01-02-2024 11:06-0400 Body mass index (BMI) [Ratio] 38.1 kg/m2 [facility] 01-02-2024 11:06-0400 Body weight 100.75 kg [facility] 01-02-2024 11:06-0400 Diastolic blood pressure 76 mm[Hg] [facility] 01-02-2024 11:06-0400 Heart rate 88 /min [facility] 01-02-2024 11:06-0400 Systolic blood pressure 112 mm[Hg] [facility] 10-24-2023 08:36-0400 Body height 162.56 cm [facility] 10-24-2023 08:36-0400 Body mass index (BMI) [Ratio] 37.9 kg/m2 [facility] 10-24-2023 08:36-0400 Body weight 100.24 kg [facility] 10-24-2023 08:36-0400 Diastolic blood pressure 93 mm[Hg] [facility] 10-24-2023 08:36-0400 Heart rate 80 /min [facility] 10-24-2023 08:36-0400 Systolic blood pressure 133 mm[Hg] [facility] 06-29-2023 11:38-0400 Body height 162.56 cm [facility] 06-29-2023 11:38-0400 Body mass index (BMI) [Ratio] 37.5 kg/m2 [facility] 06-29-2023 11:38-0400 Body weight 99.39 kg [facility] 06-29-2023 11:38-0400 Diastolic blood pressure 83 mm[Hg] [facility] 06-29-2023 11:38-0400 Heart rate 83 /min [facility] 06-29-2023 11:38-0400 Systolic blood pressure 118 mm[Hg] [facility] 02-24-2023 10:30-0500 Body height 162.56 cm Akanksha Jack Other [facility] [employer] Other 02-24-2023 10:30-0500 Body mass index (BMI) [Ratio] 38.45 kg/m2 Akanksha Jack Other [facility] Other 02-24-2023 10:30-0500 Body temperature 97.2 [degF] Akanksha Jack Other [facility] Other 02-24-2023 10:30-0500 Body weight 101.61 kg Akanksha Jack Other [facility] Other 02-24-2023 10:30-0500 Diastolic blood pressure 83 mm[Hg] Akanksha Jack Other [facility] Other 02-24-2023 10:30-0500 Systolic blood pressure 123 mm[Hg] Akanksha Jack Other [facility] Other 12-17-2022 10:45-0400 Body height 162.56 cm Akanksha Jack Other [facility] Other 12-17-2022 10:45-0400 Body mass index (BMI) [Ratio] 38.1 kg/m2 Akanksha Jack Other [facility] Other 12-17-2022 10:45-0400 Body temperature 98.9 [degF] Akanksha Jack Other [facility] Other 12-17-2022 10:45-0400 Body weight 100.7 kg Akanksha Jack Other [facility] Other 12-17-2022 10:45-0400 Diastolic blood pressure 78 mm[Hg] Akanksha Jack Other [facility] Other 12-17-2022 10:45-0400 Respiratory rate 12 /min Akanksha Jack Other [facility] Other 12-17-2022 10:45-0400 SaO2% (BldA) [Mass fraction] 97 % Akanksha Jack Other [facility] Other 12-17-2022 10:45-0400 Systolic blood pressure 128 mm[Hg] Akanksha Jack Other [facility] Other 10-19-2022 12:00-0400 Body height 162.56 cm Akanksha Jack Other [facility] Other 10-19-2022 12:00-0400 Body mass index (BMI) [Ratio] 38.62 kg/m2 Akanksha Jack Other [facility] Other 10-19-2022 12:00-0400 Body temperature 97.5 [degF] Akanksha Jack Other [facility] Other 10-19-2022 12:00-0400 Body weight 102.06 kg Akanksha Jack Other [facility] Other 10-19-2022 12:00-0400 Diastolic blood pressure 85 mm[Hg] Akanksha Jack Other [facility] Other 10-19-2022 12:00-0400 Systolic blood pressure 134 mm[Hg] Akanksha Jack Other [facility] Other 09-01-2022 11:45-0400 Body height 162.56 cm Akanksha Jack Other [facility] Other 09-01-2022 11:45-0400 Body mass index (BMI) [Ratio] 38.45 kg/m2 Akanksha Jack Other [facility] Other 09-01-2022 11:45-0400 Body weight 101.61 kg Akanksha Jack Other [facility] Other 09-01-2022 11:45-0400 Diastolic blood pressure 90 mm[Hg] Akanksha Jack Other [facility] Other 09-01-2022 11:45-0400 Systolic blood pressure 133 mm[Hg] Akanksha Jack Other [facility] Other 08-25-2022 09:30-0400 Body height 162.56 cm Akanksha Jack Other [facility] Other 08-25-2022 09:30-0400 Body mass index (BMI) [Ratio] 38.62 kg/m2 Akanksha Jack Other [facility] Other 08-25-2022 09:30-0400 Body weight 102.06 kg Akanksha Jack Other [facility] Other 08-25-2022 09:30-0400 Diastolic blood pressure 82 mm[Hg] Akanksha Jack Other [facility] Other 08-25-2022 09:30-0400 Systolic blood pressure 128 mm[Hg] Akanksha Jack Other [facility] Other Encounters Encounter Date Encounter Type Care Provider Facility Start: 09-17-2024 End: 09-17-2024 ambulatory Akanksha Jack MD Work Phone: [facility] Work Phone: Start: 09-17-2024 End: 09-17-2024 Patient encounter procedure Akanksha Jack MD -[facility] Work Phone: Start: 09-17-2024 End: 09-17-2024 Patient encounter status Akanksha Jack MD [facility] Start: 01-02-2024 End: 01-02-2024 ambulatory [facility] Work Phone: Start: 01-02-2024 End: 01-02-2024 Patient encounter procedure [facility] Physician [facility] Work Phone: Start: 10-24-2023 End: 10-24-2023 ambulatory [facility] Work Phone: Start: 10-24-2023 End: 10-24-2023 Patient encounter procedure [facility] Physician [facility] Work Phone: Start: 06-29-2023 End: 06-29-2023 ambulatory [facility] Work Phone: Start: 06-29-2023 End: 06-29-2023 Patient encounter procedure [facility] Physician [facility] Work Phone: Start: 03-24-2023 End: 03-24-2023 ambulatory Akanksha Jack Other [facility] Other Start: 03-24-2023 Telephone encounter Akanksha Jack [facility] Start: 02-24-2023 End: 02-24-2023 ambulatory Akanksha Jack Other [facility] Other Start: 02-24-2023 Office outpatient vi sit 15 minutes Akanksha Jack [facility] Start: 12-17-2022 End: 12-17-2022 ambulatory Akanksha Jack Other [facility] Other Start: 12-17-2022 Office outpatient vi sit 15 minutes Akanksha Jack [facility] Start: 10-19-2022 End: 10-19-2022 ambulatory Akanksha Jack Other [facility] Other Start: 10-19-2022 Office outpatient vi sit 15 minutes Akanksha Jack [facility] Start: 09-01-2022 End: 09-01-2022 ambulatory Akanksha Jack Other [facility] Other Start: 09-01-2022 Office outpatient vi sit 15 minutes Akanksha Jack [facility] Start: 08-25-2022 End: 08-25-2022 ambulatory Akanksha Jack Other [facility] Other Start: 08-25-2022 Office outpatient vi sit 15 minutes Akanksha Jack [facility] Start: 02-12-2022 End: 02-12-[address] AKANKSHA JACK Facility:[facility] Start: 02-12-2022 Adult health examination Ciara Jack Other [facility] Other Start: 02-12-2022 Gynecological examination normal Akanksha Jack Other [facility] Other Start: 07-31-2021 End: 08-01-[address] AKANKSHA JACK Facility:[facility] Start: 07-18-2021 End: 07-19-[address] AKANKSHA JACK Facility:[facility] Start: 04-22-2021 End: 04-22-[address] AKANKSHA JACK Facility:[facility] Start: 08-12-2017 End: 08-13-2017 Ambulatory Rafita Donnelly Facility:[id number] Start: 08-02-2017 End: 08-03-2017 Ambulatory Rafita Donnelly Facility:[facility]:[id number] Start: 07-04-2017 End: 07-05-2017 Ambulatory DEFAULT PHYSICIAN Facility:[facility] Procedures Date Procedure Procedure Detail Performing Clinician Screening for malign ant neoplasm of breast Akanksha Jack Other Plan of Treatment Date Care Activity Detail Author Start: 09-17-2024 Patient referral [facility] Work Phone: Comprehensive metabo lic 2000 panel - Serum or Plasma [facility] MG Breast - bilateral Screening [facility] Patient referral [facility] Work Phone: [facility] Payers Date Payer Category Payer Self-pay 1975 Unknown [id number] 1975 Unknown [id number] 1975 Unknown [id number] 1975 Unknown [id number] 1958 Private Health Insurance [id number] Medicaid [id number] Private Health Insurance [id number] Private Health Insurance [employer] [id number] Unknown Social History Date Type Detail Facility Unknown if ever smoked [facility] Other Sex Assigned At Sex Assigned At [facility] [employer] Other Start: 06-29-2023 End: 02-16-2024 Tobacco smoking status NHIS Ex-smoker (finding) [facility] Start: 1975 Sex Assigned At Female [facility] Sex Female (finding) [facility] NEGATED: Highlighted row N [facility] Clinical Notes 08-25-2022 to 02-24-2023 Note Date & Type Note Facility 02-24-2023 Evaluation note Encounter Date Diagnosis Assessment Notes Feb, Tension headache (ICD-10 - G44.209) consider excedrine, improve hydration, stretch and rrest. Feb, Trapezius muscle spasm (ICD-10 - M62.838) Trial of muscle relaxers when sleep schedule permits. Discussed cause of tension headache is likely from upperback/ neck [facility] Other 10-13-2023 Evaluation note* Encounter Date Diagnosis Assessment Notes Treatment Notes Treatment Clinical Notes Dec, Bronchitis (ICD-10 - J40) Complete entire course of antibiotics as prescribed. Steroid should help with the sensation of chest tightness that she describes. Call or ER if shortness of breath worsens. Patient expresses understanding. [facility] Other 08-15-2023 Evaluation note* Encounter Date Diagnosis Assessment Notes Treatment Notes Treatment Clinical Notes Oct, Acute non-recurrent maxillary sinusitis (ICD-10 - J01.00) Sinus infections can be triggered by a secondary infection from a viral URI or even seasonal allergies. Take medications as directed. Use saline nasal spray prior to presciption nasal spray. Take medications as directed, and complete all doses of medication even if you start to feel better. Patient verbalized understanding and agreement with treatment plan. [facility] Other 06-28-2023 Evaluation note* Encounter Date Diagnosis Assessment Notes Treatment Notes Treatment Clinical Notes Aug, Left-sided chest pain (ICD-10 - R07.9) Pt agrees to stress test. States her father had an PA at a young age. Order sent to [facility] Other 06-21-2023 Evaluation note* Encounter Date Diagnosis Assessment Notes Treatment Notes Treatment Clinical Notes Aug, Fatigue (ICD-10 - R53.83) Will evaluate labs and continue OTC allergy meds. Discussed sleep hygeine and shift work sleep disorder. [facility] [employer] Other Evaluation noteNo assessment information available [facility] Work Phone: Evaluation note* Diagnosis Onset Date Resolution Status Generalized anxiety disorder acute Otitis externa acute [facility] Work Phone: Evaluation note* Diagnosis Onset Date Resolution Status Admit Date Colon cancer screening acute Ju ly 2024 9:29am Screening mammogram for dayna st cancer acute September 17, 2024 9:29am Wellness examination acute September 17, 2024 9:29am [facility] Work Phone: History general Narrative - Reported* Type Description Date Medical History Right upper quadrant abdominal p ain Medical History Family history of diabetes melli tus Medical History Depression Medical History JAZ (generalized anxiety disorde r) Medical History Fatigue Medical History Malaise Medical History Anemia Surgical History CYSTECTOMY Surgical History HYTERECTOMY Hospitalization History SEE SURGICAL HX [facility] [employer] Other Hospital Discharge instructionsAmbulatory Orders* Referral to Gastroenterology Location: None Selected [facility] Work Phone: Summary Purpose Family History Relationship Condition Age at Onset Recorded Date/T chandan father Hypertension Unknown Unknown Diabetes mellitus Unknown Heart disease Unknown sister Diabetes mellitus Unknown Relationship Condition Age at Onset Recorded Date/T chandan father Hypertension Unknown Unknown Diabetes mellitus Unknown Heart disease Unknown sister Diabetes mellitus Unknown grandparent Malignant neoplasm Unknown Advance Directives Advance Directive Response Recorded Date/ Time Advance Directives No June 27 9:51am Advance Directive Response Recorded Date/ Time Advance Directives No February 3:14pm Chief Complaint and Reason for Visit Chief Complaint lice Chief Complaint ear issues, hot flas hes Chief Complaint ear issues, hot flas hes difficulty sleeping Reason for Visit Generalized anxiety disorder Otitis externa Chief Complaint Admit Date Wellness September 17, 2024 9:29 am Reason for Visit Admit Date Colon cancer screening September 17, 2024 9 :29am Screening mammogram for breast cancer Ju ly 2024 9:29am Wellness examination September 17, 2024 9:2 9am Additional Source Comments INFORMATION SOURCE (unrecogn ized section and content) DATE CREATED AUTHOR 08/23/2017 Joaquin Hale [facility] DATE CREATED AUTHOR AUTHOR'S ORGANIZ ATION 08/25/2017 [facility] DATE CREATED AUTHOR AUTHOR'S ORGANIZ ATION 10/19/2017 [facility] DATE CREATED AUTHOR AUTHOR'S ORGANIZ ATION 02/17/2022 [facility] REASON FOR VISIT (unrecogniz ed [...] January 02, 2024 End: January 02, 2024 Team Status: Inactive Member Role Status Dates Akanksha Jack MD Primary Care Provider Active Start: September 17, 2024 End: September 17, 2024 Akanksha Jack MD Attending Provider Active St art: September 17, 2024 End: September 17, 2024 Goals (unrecognized section and content) Goals [...] BE BASED ON THE PRIMARY CLINICAL RECORDS. [employer] provides no warranty or guarantee of the accuracy or completeness of information in this document.
[2024-09-18 08:40] LABS: Alanine Aminotransferase 56 U/L (14-59); Albumin Globulin Ratio 1.0; Albumin Level 3.5 g/dL (3.4-5.0); Alkaline Phosphatase 156 U/L (46-116); Anion Gap 15.0; Aspartate Amino Transferase 33 U/L (15-37); Blood Urea Nitrogen 22.0 mg/dL (7.0-18.0); Calcium 9.0 mg/dL (8.5-10.1); Carbon Dioxide 25.2 mmol/L (21.0-32.0); Chloride 107 mmol/L (98-107); Cholesterol 156 mg/dL (<=200); Estimated GFR (African America >60 (>=60 mL/min/1.73m^2); Estimated GFR (Non-African Ame >60 (>=60 mL/min/1.73m^2); Globulin 3.6 g/dL; Glucose 86 mg/dL (74-106); HDL Cholesterol 67 mg/dL (40-60); Potassium 4.2 mmol/L (3.5-5.1); Sodium 143 mmol/L (136-145); Total Protein 7.1 g/dL (6.4-8.2); Triglycerides 76 mg/dL (<=150); VLDL CHOLESTEROL 15.2 mg/dL
[2024-09-18 09:17] LABS: Hematocrit 36.7 % (36.0-48.0); Hemoglobin 12.5 g/dL (12.0-16.0); Immature Granulocytes Abs Auto 0.02 10^3/uL (0.00-0.03); Immature Granulocytes Pct Auto 0.3 % (0.0-0.5); Lymphocytes Absolute Auto 2.8 10^3/uL (1.2-3.8); Mean Corpuscular HGB Conc 34.1 g/dL (29.9-35.2); Mean Corpuscular Hemoglobin 30.0 pg (26.7-34.0); Mean Corpuscular Volume 88.2 fL (81.0-99.0); Platelet Count 275 10^3/uL (150-450); Red Blood Count 4.16 10^6/uL (4.20-5.40); White Blood Count 6.7 10^3/uL (4.0-11.0)
== END 2024-09-18 06:48 | disposition home or self-care (01) ==
LOC: LAB 06:50
PROVIDERS: PCP Family Medicine; Visit Provider Family Medicine
DX: Z00.00 Encounter for general adult medical examination without abnormal findings (principal)
CPT/HCPCS: 36415; 80053; 80061; 83036; 85025